=== PATIENT | female | born 1940 | race Caucasian/White ===

== ENCOUNTER 2017-03-20 08:56 | Emergency (ER) | payer MEDICARE, BC ==
--- NOTE | 2017-03-20 10:04 | ER Document Report ---
ED Medical Screen (RME) - General Chief Complaint: Abdominal Pain Stated Complaint: RIGHT LOWER ABDOMINAL PAIN Time Seen by Provider: 03/20/17 09:59 Mode of Arrival: Wheelchair Information source: Patient TRAVEL OUTSIDE OF THE [place] IN LAST 30 DAYS: No - HPI Patient complains to provider of: abdominal pain Onset: Yesterday - pt. with onset of R-sided abdominal pain for the past 1-2 days with difficulty taking a deep breath - Related Data Allergies/Adverse Reactions: codeine [Codeine] Allergy (Verified 03/20/17 09:03) Vomiting Sulfa (Sulfonamide Antibiotics) Allergy (Verified 03/20/17 09:03) rash Past Medical History - Past Medical History Cardiac Medical History: Reports: Hx Coronary Artery Disease, Hx Hypertension, Hx Heart Murmur Denies: Hx Heart Attack Pulmonary Medical History: Reports: Hx Bronchitis, Hx Pneumonia Denies: Hx Asthma, Hx COPD, Hx Tuberculosis Neurological Medical History: Denies: Hx Cerebrovascular Accident, Hx Seizures Endocrine Medical History: Reports: Hx Hypothyroidism Renal/ Medical History: Reports: Hx Kidney Stones. Denies: Hx Peritoneal Dialysis GI Medical History: Reports: Hx Gastroesophageal Reflux Disease, Hx Hiatal Hernia - constricted esophageal hernia, Hx Liver Failure, Hx Ulcer Musculoskeltal Medical History: Reports Hx Arthritis - osteo Psychiatric Medical History: Denies: Hx Depression Past Surgical History: Reports: Hx Cardiac Catheterization - stent, Hx Cardiac Surgery - pacemaker, Hx Cholecystectomy, Hx Hysterectomy, Hx Pacemaker - Immunizations Hx Diphtheria, Pertussis, Tetanus Vaccination: No Physical Exam - Vital signs Vitals: Temp Pulse Resp BP Pulse Ox 98.1 F 60 16 144/69 H 99 03/20/17 09:02 03/20/17 09:02 03/20/17 09:02 03/20/17 09:02 03/20/17 09:02 Course - Vital Signs Vital signs: Temp Pulse Resp BP Pulse Ox 98.1 F 60 16 144/69 H 99 03/20/17 09:02 03/20/17 09:02 03/20/17 09:02 03/20/17 09:02 03/20/17 09:02
[2017-03-20 11:00] LABS: ABSOLUTE BASOPHILS # (AUTO) 0.1 10^3/uL (0.0-0.2); ABSOLUTE EOSINOPHILS # (AUTO) 0.2 10^3/uL (0.0-0.6); ABSOLUTE LYMPHOCYTES (AUTO) 2.3 10^3/uL (0.5-4.7); ABSOLUTE MONOCYTES (AUTO) 1.3 10^3/uL (0.1-1.4); ABSOLUTE NEUT (AUTO) 4.4 10^3/uL (1.7-8.2); BASOPHILS % (AUTO) 1.2 % (0-2); EOSINOPHILS % (AUTO) 2.9 % (0-6); HEMATOCRIT 42.8 % (36.0-47.0); HGB HCT DIFFERENCE -0.8; LYMPHOCYTES % (AUTO) 27.3 % (13-45); MEAN CORPUSCULAR HEMOGLOBIN 30.5 pg (27.0-33.4); MEAN CORPUSCULAR HGB CONC 32.6 g/dL (32.0-36.0); MEAN CORPUSCULAR VOLUME 94 fl (80-97); MONOCYTES % (AUTO) 15.8 % (3-13); RED BLOOD COUNT 4.57 10^6/uL (3.72-5.28); RED CELL DISTRIBUTION WIDTH 13.8 % (11.5-14.0); SEGMENTED NEUTROPHILS % (AUTO) 52.8 % (42-78); WHITE BLOOD COUNT 8.2 10^3/uL (4.0-10.5)
[2017-03-20 11:09] LABS: APPEARANCE,URINE SLIGHTLY-CLOUDY; BILIRUBIN,URINE NEGATIVE (NEGATIVE); GLUCOSE, URINE NEGATIVE (NEGATIVE); KETONES,URINE NEGATIVE (NEGATIVE); LEUKOCYTE ESTERASE,URINE LARGE (NEGATIVE); NITRITE,URINE NEGATIVE (NEGATIVE); PROTEIN,URINE NEGATIVE (NEGATIVE); URINE SPECIFIC GRAVITY 1.009; UROBILINOGEN,URINE NEGATIVE mg/dL (<2.0)
[2017-03-20 11:19] LABS: ALANINE AMINOTRANSFERASE 51 U/L (9-52); ALBUMIN 4.4 g/dL (3.5-5.0); ALKALINE PHOSPHATASE 115 U/L (38-126); ANION GAP 13 (5-19); ASPARTATE AMINO TRANSFERASE 61 U/L (14-36); BILIRUBIN,DIRECT 0.3 mg/dL (0.0-0.4); BILIRUBIN,TOTAL 0.6 mg/dL (0.2-1.3); BLOOD UREA NITROGEN 10 mg/dL (7-20); CALCIUM 9.7 mg/dL (8.4-10.2); CARBON DIOXIDE 32 mmol/L (22-30); CHLORIDE 98 mmol/L (98-107); CREATININE RESULT 0.85 mg/dL (0.52-1.25); GLUCOSE 163 mg/dL (75-110); LIPASE 161.8 U/L (23-300); POTASSIUM 4.4 mmol/L (3.6-5.0); SODIUM 142.8 mmol/L (137-145); TOTAL PROTEIN 9.3 g/dL (6.3-8.2)
--- NOTE | 2017-03-20 13:07 | RADIOLOGY REPORT (SQ) ---
EXAM DESCRIPTION: CTA CHEST COMPLETED DATE/TIME: 03/20/2017 12:49 pm REASON FOR STUDY: elevated d dimer chest pain COMPARISON: CT chest 09/20/2016, 07/02/2016, 01/05/2016, 12/22/2015 TECHNIQUE: CT scan of the chest performed using helical scanning technique with dynamic intravenous contrast injection. Images reviewed with lung, soft tissue and bone windows. Reconstructed coronal and sagittal MPR images reviewed. Additional 3 dimensional post-processing performed to develop Maximal Intensity Projection images (ID P). All images stored on PACS. All CT scanners at this facility use dose modulation, iterative reconstruction, and/or weight based d osing when appropriate to reduce radiation dose to as low as reasonably achievable (ALARA). [facility]: Dose Right [facility]: CareDose [facility]: Dose Right [facility]: Teradose 4D [facility]: [employer] CONTRAST TYPE AND DOSE: 75 mL Isovue 370- low osmolar. RENAL FUNCTION: Creatinine 0.85 RADIATION DOSE: 33.08 mGy. LIMITATIONS: None. FINDINGS: LUNGS AND PLEURA: No masses, infiltrates, pneumothorax. No pleural effusions, calcificati ons. AORTA AND GREAT VESSELS: No aneurysm or dissection. HEART: No pericardial effusion. PULMONARY ARTERIES: No emboli visualized in the main pulmonary arteries or the segmental branches. HILAR AND MEDIASTINAL STRUCTURES: No identified masses or abnormal nodes. HARDWARE: None in the chest. UPPER ABDOMEN: Post cholecystectomy. Benign prominence of the common bile duct, 14 mm diameter. THYROID AND OTHER SOFT TISSUES: No masses. No adenopathy. BONES: No acute or significant finding. 3D MIPS: Confirm above findings. OTHER: No other significant finding. IMPRESSION: No CT angio evidence of acute pulmonary emboli or thoracic aortic dissection. No focal infiltrates. TECHNICAL DOCUMENTATION: JOB ID: [id number] Quality ID # [id number]: Final reports with documentation of one or more dose reduction techniques (e.g., Au tomated exposure control, adjustment of the mA and/or kV according to patient size, use of iterative reconstruction technique) 2010 [employer]- All Rights Reserved
--- NOTE | 2017-03-20 13:15 | RADIOLOGY REPORT (SQ) ---
EXAM DESCRIPTION: CT ABD/PELVIS WITH IV ONLY COMPLETED DATE/TIME: 03/20/2017 12:49 pm REASON FOR STUDY: R Abd pain COMPARISON: CT abdomen pelvis 12/14/2013, 08/24/2012, 10/14/2011 TECHNIQUE: CT scan of the abdomen and pelvis performed using helical scanning technique with dynamic intravenous contrast injection. No oral contrast. Images reviewed with lung, soft tissue, and bone windows. Reconstructed coronal and sagittal MPR images reviewed. Delayed images for evaluation of the urinary system also acquired. All images stored on PACS. All CT scanners at this facility use dose modulation, iterative reconstruction, and/or weight based d osing when appropriate to reduce radiation dose to as low as reasonably achievable (ALARA). [facility]: Dose Right [facility]: CareDose [facility]: Dose Right [facility]: Teradose 4D [facility]: [employer] CONTRAST TYPE AND DOSE: 75mL Isovue 370- low osmolar. RENAL FUNCTION: Creatinine 0.85 RADIATION DOSE: 28.09mGy. LIMITATIONS: None. FINDINGS: LOWER CHEST: No significant findings. No nodules or infiltrates. LIVER: Normal size. No masses or dilated ducts. SPLEEN: Normal size. No focal lesions. PANCREAS: No masses. No significant calcifications. No adjacent inflammation or peripancreatic fluid collections. Pancreatic duct not dilated. GALLBLADDER: Surgically absent. Benign prominence of the common bile duct, 14 mm in diameter. This is similar compared to previous studies. ADRENAL GLANDS: No significant masses or asymmetry. RIGHT KIDNEY AND URETER: No solid masses. No significant calcifications. No hydronephrosis or hyd roureter. LEFT KIDNEY AND URETER: No solid masses. No significant calcifications. No hydronephrosis or hydr oureter. AORTA AND VESSELS: No abdominal aortic aneurysm. No abdominal aortic dissection. There is heavy ath erosclerotic calcification with greater than 75 % stenosis of the bilateral proximal renal arteries a nd superior mesenteric artery. SMA stenosis is best shown on coronal images 32-35. This is similar compared to 01/11/2014 RETROPERITONEUM: No retroperitoneal adenopathy, hemorrhage or masses. BOWEL AND PERITONEAL CAVITY: No masses or inflammatory changes. No free fluid or peritoneal masses. Few colonic diverticuli without CT signs of acute diverticulitis. APPENDIX: Normal. PELVIS: No mass or free fluid. Normal bladder. Post hysterectomy. ABDOMINAL WALL: There is a small fat containing ventral hernia at the ORIF incision in the right uppe r quadrant on axial image 181, similar compared to 01/11/2014. BONES: No significant or acute findings. OTHER: No other significant finding. IMPRESSION: No free intraperitoneal air or fluid or CT signs of bowel obstruction, appendicitis, or diverticulitis. Post cholecystectomy and hysterectomy. 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 TECHNICAL DOCUMENTATION: JOB ID: [id number] Quality ID # [id number]: Final reports with documentation of one or more dose reduction techniques (e.g., Au tomated exposure control, adjustment of the mA and/or kV according to patient size, use of iterative reconstruction technique) 2010 [employer]- All Rights Reserved
--- NOTE | 2017-03-20 13:26 | EKG REPORT ---
SEVERITY:- ABNORMAL ECG - ATRIAL-VENTRICULAR DUAL-PACED RHYTHM : Confirmed by: Theo Booth 20-Mar-2017 13:26:27
[2017-03-20] MEDS ORDERED: NITROFURANTOIN MONOHYD/M-CRYST 100 MG CAPSULE PO ONE (13:53)
[2017-03-20] MEDS ORDERED: LIDOCAINE 5% (700 MG) TRANSDERMAL ADH..PATCH TP ONE (13:53)
--- NOTE | 2017-03-20 14:02 | ER Document Report ---
ED General - General Chief Complaint: Abdominal Pain Stated Complaint: RIGHT LOWER ABDOMINAL PAIN Time Seen by Provider: 03/20/17 09:59 Mode of Arrival: Wheelchair TRAVEL OUTSIDE OF THE [place] IN LAST 30 DAYS: No - Related Data Allergies/Adverse Reactions: codeine [Codeine] Allergy (Verified 03/20/17 09:03) Vomiting Sulfa (Sulfonamide Antibiotics) Allergy (Verified 03/20/17 09:03) rash Past Medical History - General Information source: Patient - Social History Smoking Status: Never Smoker Chew tobacco use (# tins/day): No Frequency of alcohol use: None Drug Abuse: None Family History: None Patient has suicidal ideation: No Patient has homicidal ideation: No - Past Medical History Cardiac Medical History: Reports: Hx Coronary Artery Disease, Hx Hypertension, Hx Heart Murmur Denies: Hx Heart Attack Pulmonary Medical History: Reports: Hx Bronchitis, Hx Pneumonia Denies: Hx Asthma, Hx COPD, Hx Tuberculosis Neurological Medical History: Denies: Hx Cerebrovascular Accident, Hx Seizures Endocrine Medical History: Reports: Hx Hypothyroidism Renal/ Medical History: Reports: Hx Kidney Stones. Denies: Hx Peritoneal Dialysis GI Medical History: Reports: Hx Gastroesophageal Reflux Disease, Hx Hiatal Hernia - constricted esophageal hernia, Hx Liver Failure, Hx Ulcer Musculoskeltal Medical History: Reports Hx Arthritis - osteo Psychiatric Medical History: Denies: Hx Depression Past Surgical History: Reports: Hx Cardiac Catheterization - stent, Hx Cardiac Surgery - pacemaker, Hx Cholecystectomy, Hx Hysterectomy, Hx Pacemaker - Immunizations Hx Diphtheria, Pertussis, Tetanus Vaccination: No Hx Pneumococcal Vaccination: 10/17/06 Physical Exam - Vital signs Vitals: Temp Pulse Resp BP Pulse Ox 98.1 F 60 16 144/69 H 99 03/20/17 09:02 03/20/17 09:02 03/20/17 09:02 03/20/17 09:02 03/20/17 09:02 Course - Vital Signs Vital signs: Temp Pulse Resp BP Pulse Ox 98.1 F 60 16 144/69 H 99 03/20/17 09:02 03/20/17 09:02 03/20/17 09:02 03/20/17 09:02 03/20/17 09:02 - Laboratory Result Diagrams: 03/20/17 10:35 03/20/17 10:35 Laboratory results interpreted by me: 03/20/17 03/20/1703/20/17 09:40 10:35 10:35 Monocytes % 15.8 H D-Dimer Carbon Dioxide 32 H Glucose 163 H AST 61 H Total Protein 9.3 H Ur Leukocyte Esterase LARGE H 03/20/17 10:35 Monocytes % D-Dimer 0.52 H Carbon Dioxide Glucose AST Total Protein Ur Leukocyte Esterase Discharge - Discharge Clinical Impression: Right flank pain UTI (urinary tract infection) Qualifiers: Urinary tract infection type: site unspecified Hematuria presence: without hematuria Qualified Code(s): N39.0 - Urinary tract infection, site not specified Condition: Good Disposition: HOME, SELF-CARE Instructions: Nitrofurantoin ([facility]), Urinary Tract Infection ([facility]), Flank Pain ( [facility]) Additional Instructions: Please follow-up with your primary care provider for further evaluation. At this time there is no critical pathology for your right-sided abdominal pain. Her urinalysis does show signs of infection with bacteria. We will send this for culture we will start you on Macrobid. If you do receive good pain relief with a Lidoderm patch I would recommend discussing this with your pharmacist about [id number] alternatives such as salon pause or Aspercreme. Please follow-up with your primary care physician Prescriptions: Nitrofurantoin Monohyd/M-Cryst [Macrobid 100 mg Capsule] 100 mg PO BID #20 capsule Referrals: JANI ARREDONDO MD [Primary Care Provider] - Follow up in 3-5 days
[2017-03-20 15:00] VITALS: BP 145/60
== END 2017-03-20 15:04 | disposition home or self-care (01) ==
LOC: ER 08:56
DX: R10.31 Right lower quadrant pain (principal); N39.0 Urinary tract infection, site not specified; I25.10 Atherosclerotic heart disease of native coronary artery without angina pectoris; I10 Essential (primary) hypertension; E03.9 Hypothyroidism, unspecified; K21.9 Gastro-esophageal reflux disease without esophagitis; Z88.6 Allergy status to analgesic agent; Z88.2 Allergy status to sulfonamides; Z87.442 Personal history of urinary calculi; Z95.0 Presence of cardiac pacemaker; Z90.49 Acquired absence of other specified parts of digestive tract; Z90.710 Acquired absence of both cervix and uterus
CPT/HCPCS: 93005; 99284; 36415; 87086; 83690; 85025; 80053; 81001; 85379; 71275; 74177; 93010; A9270; J8499

== ENCOUNTER → 2017-06-10 | Outpatient (CLI) | payer MEDICARE, BC ==
--- NOTE | 2017-06-10 15:04 | RADIOLOGY REPORT (SQ) ---
EXAM DESCRIPTION: CT CHEST WITHOUT COMPLETED DATE/TIME: 06/10/2017 2:04 pm REASON FOR STUDY: BRONCHIECTASIS (J47.9) J47.9 BRONCHIECTASIS, UNCOMPLICATED COMPARISON: 03/20/2017 TECHNIQUE: CT scan performed of the chest without intravenous contrast. Images reviewed with lung, soft tissue and bone windows. Reconstructed coronal and sagittal MPR images reviewed. All images st ored on PACS. All CT scanners at this facility use dose modulation, iterative reconstruction, and/or weight based d osing when appropriate to reduce radiation dose to as low as reasonably achievable (ALARA). [facility]: Dose Right [facility]: CareDose [facility]: Dose Right [facility]: Teradose 4D [facility]: [employer] RADIATION DOSE: Up-to-date CT equipment and radiation dose reduction techniques were employed. CTDIv ol: 6.0 mGy. DLP: 235 mGy-cm. mGy. LIMITATIONS: No technical limitations. FINDINGS: LUNGS AND PLEURA: Mild bronchiectasis left lower lobe. Scarring in the lingula. No effus ions. HILAR AND MEDIASTINAL STRUCTURES: No identified masses or abnormal nodes. No obvious aneurysm. HEART AND VASCULAR STRUCTURES: Cardiomegaly. Pacemaker. No aneurysm. No pericardial effusion. UPPER ABDOMEN: No significant findings. Limited exam. THYROID AND OTHER SOFT TISSUES: No masses. No adenopathy. BONES: No significant finding. HARDWARE: None in the chest. OTHER: No other significant findings. IMPRESSION: Mild bronchiectasis. TECHNICAL DOCUMENTATION: JOB ID: [id number] Quality ID # [id number]: Final reports with documentation of one or more dose reduction techniques (e.g., Au tomated exposure control, adjustment of the mA and/or kV according to patient size, use of iterative reconstruction technique) 2010 [employer]- All Rights Reserved
== END ==
LOC: RAD 13:38
PROVIDERS: ATTEND Internal Medicine Pulmonary Disease
DX: J47.9 Bronchiectasis, uncomplicated (principal)
CPT/HCPCS: 71250

== ENCOUNTER 2017-07-20 14:10 | Emergency (ER) | payer MEDICARE, BC ==
--- NOTE | 2017-07-20 14:50 | ER Document Report ---
ED Medical Screen (RME) - General Chief Complaint: Abdominal Pain Stated Complaint: VOMITING Time Seen by Provider: 07/20/17 14:18 Mode of Arrival: Wheelchair Information source: Patient TRAVEL OUTSIDE OF THE [place] IN LAST 30 DAYS: No - HPI Patient complains to provider of: Diarrhea, abdominal pain, nausea Notes: 07/20/17 14:50 Patient is a 77-year-old female presenting to the emergency room today complaining of 2 week history of diarrhea with nausea and crampy abdominal pain - Related Data Allergies/Adverse Reactions: codeine [Codeine] Allergy (Verified 07/20/17 14:14) Vomiting Sulfa (Sulfonamide Antibiotics) Allergy (Verified 07/20/17 14:14) rash Past Medical History - Past Medical History Cardiac Medical History: Reports: Hx Coronary Artery Disease, Hx Hypertension, Hx Heart Murmur Denies: Hx Heart Attack Pulmonary Medical History: Reports: Hx Bronchitis, Hx Pneumonia Denies: Hx Asthma, Hx COPD, Hx Tuberculosis Neurological Medical History: Denies: Hx Cerebrovascular Accident, Hx Seizures Endocrine Medical History: Reports: Hx Hypothyroidism Renal/ Medical History: Reports: Hx Kidney Stones. Denies: Hx Peritoneal Dialysis GI Medical History: Reports: Hx Gastroesophageal Reflux Disease, Hx Hiatal Hernia - constricted esophageal hernia, Hx Liver Failure, Hx Ulcer Musculoskeltal Medical History: Reports Hx Arthritis - osteo Psychiatric Medical History: Denies: Hx Depression Past Surgical History: Reports: Hx Cardiac Catheterization - stent, Hx Cardiac Surgery - pacemaker, Hx Cholecystectomy, Hx Hysterectomy, Hx Pacemaker - Immunizations Hx Diphtheria, Pertussis, Tetanus Vaccination: No Physical Exam - Vital signs Vitals: Temp Pulse Resp BP Pulse Ox 98.0 F 60 14 147/63 H 96 07/20/17 14:14 07/20/17 14:14 07/20/17 14:14 07/20/17 14:14 07/20/17 14:14 Course - Vital Signs Vital signs: Temp Pulse Resp BP Pulse Ox 98.0 F 60 14 147/63 H 96 07/20/17 14:14 07/20/17 14:14 07/20/17 14:14 07/20/17 14:14 07/20/17 14:14
[2017-07-20 15:40] LABS: ABSOLUTE BASOPHILS # (AUTO) 0.1 10^3/uL (0.0-0.2); ABSOLUTE EOSINOPHILS # (AUTO) 0.1 10^3/uL (0.0-0.6); ABSOLUTE LYMPHOCYTES (AUTO) 1.6 10^3/uL (0.5-4.7); ABSOLUTE MONOCYTES (AUTO) 0.6 10^3/uL (0.1-1.4); BASOPHILS % (AUTO) 1.3 % (0-2); EOSINOPHILS % (AUTO) 1.3 % (0-6); HEMATOCRIT 43.1 % (36.0-47.0); HEMOGLOBIN 14.6 g/dL (12.0-15.5); HGB HCT DIFFERENCE 0.7; LYMPHOCYTES % (AUTO) 25.3 % (13-45); MEAN CORPUSCULAR HEMOGLOBIN 31.2 pg (27.0-33.4); MEAN CORPUSCULAR HGB CONC 33.9 g/dL (32.0-36.0); MEAN CORPUSCULAR VOLUME 92 fl (80-97); MONOCYTES % (AUTO) 9.7 % (3-13); RED BLOOD COUNT 4.69 10^6/uL (3.72-5.28); RED CELL DISTRIBUTION WIDTH 13.9 % (11.5-14.0); SEGMENTED NEUTROPHILS % (AUTO) 62.4 % (42-78); WHITE BLOOD COUNT 6.4 10^3/uL (4.0-10.5)
[2017-07-20 15:59] LABS: ALANINE AMINOTRANSFERASE 45 U/L (9-52); ALBUMIN 4.5 g/dL (3.5-5.0); ALKALINE PHOSPHATASE 92 U/L (38-126); ANION GAP 13 (5-19); ASPARTATE AMINO TRANSFERASE 40 U/L (14-36); BILIRUBIN,DIRECT 0.4 mg/dL (0.0-0.4); BILIRUBIN,TOTAL 0.6 mg/dL (0.2-1.3); BLOOD UREA NITROGEN 11 mg/dL (7-20); CALCIUM 10.3 mg/dL (8.4-10.2); CARBON DIOXIDE 27 mmol/L (22-30); CHLORIDE 103 mmol/L (98-107); CREATININE RESULT 0.72 mg/dL (0.52-1.25); GLUCOSE 173 mg/dL (75-110); LIPASE 111.8 U/L (23-300); POTASSIUM 4.3 mmol/L (3.6-5.0); SODIUM 142.7 mmol/L (137-145); TOTAL PROTEIN 8.7 g/dL (6.3-8.2)
[2017-07-20] MEDS ORDERED: ONDANSETRON HCL INJ/PF 4 MG/2 ML SDV IV ONE (16:40)
[2017-07-20] MEDS ORDERED: NORMAL SALINE 1000 ML 1,000 ML IV PRN (16:40)
--- NOTE | 2017-07-20 16:45 | ER Document Report ---
ED General - General Chief Complaint: Abdominal Pain Stated Complaint: VOMITING Time Seen by Provider: 07/20/17 14:18 Mode of Arrival: Wheelchair TRAVEL OUTSIDE OF THE [place] IN LAST 30 DAYS: No - HPI Notes: Patient is a 77-year-old female who presents the ED complaining of abdominal pain, diarrhea, and nausea. Patient states that she has been having symptoms on and off for the last 2 weeks, but worsened over the last day. Stools have been semisolid at times and are brown. Patient states that she has a history of diverticulosis as well as a mild bowel obstruction that did not need surgery. Patient states that she has not been eating or drinking as much over the last couple days because of her symptoms. The pain does not radiate and is described as sharp and occasionally cramping. Patient states that she does have some burning with urination and increased frequency/urgency. Patient has a history of a cholecystectomy as well as an appendectomy. Denies any history of diabetes or cancer. Denies any melena or hematochezia. Denies any headache , fever, URI, sore throat, chest pain, palpitations, syncope, cough, shortness of breath, wheeze, dyspnea, vomiting, hematuria, back pain, loss of control of bowel or bladder, numbness/tingling, saddle anesthesia, muscle paralysis/ weakness, or rash. - Related Data Allergies/Adverse Reactions: codeine [Codeine] Allergy (Verified 07/20/17 14:14) Vomiting Sulfa (Sulfonamide Antibiotics) Allergy (Verified 07/20/17 14:14) rash Past Medical History - General Information source: Patient - Social History Smoking Status: Never Smoker Chew tobacco use (# tins/day): No Frequency of alcohol use: None Drug Abuse: None Family History: None - Past Medical History Cardiac Medical History: Reports: Hx Coronary Artery Disease, Hx Hypertension, Hx Heart Murmur Denies: Hx Heart Attack Pulmonary Medical History: Reports: Hx Bronchitis, Hx Pneumonia Denies: Hx Asthma, Hx COPD, Hx Tuberculosis Neurological Medical History: Denies: Hx Cerebrovascular Accident, Hx Seizures Endocrine Medical History: Reports: Hx Hypothyroidism Renal/ Medical History: Reports: Hx Kidney Stones. Denies: Hx Peritoneal Dialysis GI Medical History: Reports: Hx Gastroesophageal Reflux Disease, Hx Hiatal Hernia - constricted esophageal hernia, Hx Liver Failure, Hx Ulcer Musculoskeltal Medical History: Reports Hx Arthritis - osteo Psychiatric Medical History: Denies: Hx Depression Past Surgical History: Reports: Hx Cardiac Catheterization - stent, Hx Cardiac Surgery - pacemaker, Hx Cholecystectomy, Hx Hysterectomy, Hx Pacemaker - Immunizations Hx Diphtheria, Pertussis, Tetanus Vaccination: No Hx Pneumococcal Vaccination: 10/17/06 Review of Systems - Review of Systems Notes: REVIEW OF SYSTEMS: CONSTITUTIONAL : Denies fever, chills, or sweats. Denies recent illness. EENT: Denies eye, ear, throat, or mouth pain or symptoms. Denies nasal or sinus congestion or discharge. Denies throat, tongue, or mouth swelling or difficulty swallowing. CARDIOVASCULAR: Denies chest pain. Denies palpitations or racing or irregular heart beat. Denies ankle edema. RESPIRATORY: Denies cough, cold, or chest congestion. Denies shortness of breath, difficulty breathing, or wheezing. GASTROINTESTINAL: see hpi GENITOURINARY: see hpi MUSCULOSKELETAL: Denies back or neck pain or stiffness. Denies joint pain or swelling. SKIN: Denies rash, lesions or sores. NEUROLOGICAL: Denies confusion or altered mental status. Denies passing out or loss of consciousness. Denies dizziness or lightheadedness. Denies headache. Denies weakness or paralysis or loss of use of either side. Denies problems with gait or speech. Denies sensory loss, numbness, or tingling. ALL OTHER SYSTEMS REVIEWED AND NEGATIVE. Dictation was performed using [employer] voice recognition software Physical Exam - Vital signs Vitals: Temp Pulse Resp BP Pulse Ox 98.0 F 60 14 147/63 H 96 07/20/17 14:14 07/20/17 14:14 07/20/17 14:14 07/20/17 14:14 07/20/17 14:14 Notes: PHYSICAL EXAMINATION: GENERAL: Well-appearing, well-nourished and in no acute distress. A&Ox4 EYES: Pupils equal round and reactive to light, extraocular movements intact, sclera anicteric, conjunctiva are normal. ENT: Nares patent and without discharge. oropharynx clear without exudates. No tonsilar hypertrophy or erythema. Moist mucous membranes. No sinus tenderness. NECK: Normal range of motion, supple without lymphadenopathy LUNGS: Breath sounds clear to auscultation bilaterally and equal. No wheezes rales or rhonchi. HEART: Regular rate and rhythm without murmurs, rubs, gallops. ABDOMEN: Soft, nondistended abdomen. No guarding, no rebound. No masses appreciated. Normal bowel sounds present. No CVA tenderness bilaterally. + tenderness to the L>R lower quadrant. Musculoskeletal: LE's b/l: FROM to passive/active. Strength 5+/5. Extremities: No cyanosis, clubbing, or edema b/l. Peripheral pulses 2+. Capillary refill less than 3 seconds. NEUROLOGICAL: Normal speech. Normal sensory, motor exams PSYCH: Normal mood, normal affect. SKIN: Warm, Dry, normal turgor, no rashes or lesions noted. Course - Re-evaluation Re-evalutation: 07/20/17 18:52 Patient is an afebrile, well-hydrated, 77-year-old female who presents the ED with C. difficile and possible UTI. Vitals are stable. PE is otherwise unremarkable. Urinalysis was not run by the lab even though it was ordered and collected by [facility]. Lab states that they are now currently running the urine for us. C. difficile test was positive. CBC, CMP, lipase, guiac were unremarkable. CT scan of the abdomen did not show any acute pathology. Patient's C. difficile infection appears to be graded as mild at this time based on workup today. Low suspicion/risk for acute appendicitis, bowel obstruction, acute cholecystitis, acute cholangitis, perforated diverticulitis, incarcerated hernia, pancreatitis, perforated ulcer, peritonitis, sepsis, pelvic inflammatory disease, ectopic , tubo-ovarian abscess, ovarian torsion, or other systemic emergent condition at this time. Patient is aware that her condition can change from initial presentation and she needs to monitor symptoms closely and seek medical attention if any acute changes. I will send her home with a prescription for Flagyl to take 3 times a day for 2 weeks. Medication for UTI is pending urinalysis. Urine culture is pending. Conservative measures otherwise for symptoms. Recheck with your PCM in 2-3 days. Consider consult with a nail puller. Return to the ED with any worsening/concerning symptoms otherwise as reviewed in discharge. Patient is in agreement. 07/20/17 19:12 UA unremarkable. UC pending. No new concerns or complaints. Pt to be discharged. - Vital Signs Vital signs: Temp Pulse Resp BP Pulse Ox 98.0 F 75 16 135/67 H 96 07/20/17 18:13 07/20/17 18:13 07/20/17 18:13 07/20/17 18:13 07/20/17 18:13 - Laboratory Result Diagrams: 07/20/17 15:25 07/20/17 14:49 Laboratory results interpreted by me: 07/20/17 07/20/17 14:49 15:33 Glucose 173 H Calcium 10.3 H AST 40 H Total Protein 8.7 H Urine Glucose (UA) 50 H Urine Blood MODERATE H Ur Leukocyte Esterase SMALL H Discharge - Discharge Clinical Impression: C. difficile diarrhea Condition: Stable Disposition: HOME, SELF-CARE Instructions: Antinausea Medication ([facility]), C. (Clostridium) Difficile Infection ([facility]), Metronidazole ([facility]) Additional Instructions: Maintain adequate fluid and food intake [place] diet ([employer] Bananas, rice, apples, toast, etc Zofran as needed tylenol if needed Monitor for any worsening symptoms Make sure you are staying hydrated Recheck with your PCM in 2-3 days Consider consult with Gastroenterology for ongoing/worsening symptoms Return to the ED with any worsening symptoms and/or development of fever, headache, chest pain, palpitations, syncope, shortness of breath, trouble breathing, abdominal pain, n/v/d, blood in stool/urine, weakness, or other worsening symptoms that are concerning to you. Prescriptions: Metronidazole [Flagyl] 500 mg PO TID #42 tablet Ondansetron [Zofran Odt 4 mg Tablet] 1 - 2 tab PO Q4H PRN #15 tab.rapdis PRN Reason: For Nausea/Vomiting Forms: Elevated Blood Pressure Referrals: CRISTO POE PA-C [Primary Care Provider] - 07/22/17 NALLELY WISEMAN MD [ACTIVE STAFF] - Follow up as needed
--- NOTE | 2017-07-20 18:47 | RADIOLOGY REPORT (SQ) ---
EXAM DESCRIPTION: CT ABD/PELVIS WITH IV ONLY COMPLETED DATE/TIME: 07/20/2017 5:57 pm REASON FOR STUDY: LLQ pain, diarrhea COMPARISON: 03/20/2017 TECHNIQUE: CT scan of the abdomen and pelvis performed using helical scanning technique with dynamic intravenous contrast injection. No oral contrast. Images reviewed with lung, soft tissue, and bone windows. Reconstructed coronal and sagittal MPR images reviewed. Delayed images for evaluation of the urinary system also acquired. All images stored on PACS. All CT scanners at this facility use dose modulation, iterative reconstruction, and/or weight based d osing when appropriate to reduce radiation dose to as low as reasonably achievable (ALARA). [facility]: Dose Right [facility]: CareDose [facility]: Dose Right [facility]: Teradose 4D [facility]: [employer] CONTRAST TYPE AND DOSE: contrast/concentration: Isovue 370.00 mg/ml; Total Contrast Delivered: 76.0 ml; Total Saline Delivered: 42.0 ml RENAL FUNCTION: Creatinine 0.2 BUN 11 RADIATION DOSE: Up-to-date CT equipment and radiation dose reduction techniques were employed. CTDIv ol: 8.0 - 11.0 mGy. DLP: 964 mGy-cm.. LIMITATIONS: None. FINDINGS: LOWER CHEST: No significant findings. No nodules or infiltrates. LIVER: Normal size. No masses. No dilated intrahepatic ducts. The common bile duct is prominent but probably related to the prior cholecystectomy. SPLEEN: Normal size. No focal lesions. PANCREAS: No masses. No significant calcifications. No adjacent inflammation or peripancreatic fluid collections. Pancreatic duct not dilated. GALLBLADDER: Surgically absent. ADRENAL GLANDS: No significant masses or asymmetry. RIGHT KIDNEY AND URETER: No solid masses. No significant calcifications. No hydronephrosis or hyd roureter. LEFT KIDNEY AND URETER: No solid masses. No significant calcifications. No hydronephrosis or hydr oureter. AORTA AND VESSELS: No aneurysm or dissection. Atherosclerosis with prominent plaques at the origins of the SMA and renal arteries. RETROPERITONEUM: No retroperitoneal adenopathy, hemorrhage or masses. BOWEL AND PERITONEAL CAVITY: Scattered sigmoid diverticula are present with no acute inflammatory kae nges. No masses are seen. APPENDIX: Not identified. PELVIS: Urinary bladder is normal. The uterus is absent. There is no adnexal mass or fluid collecti on. There is no free fluid. ABDOMINAL WALL: There is a 15 mm ventral hernia is seen on image 37 series 5. This contains only fat . BONES: Lumbar degenerative disc changes and spondylosis with mild scoliosis. No osseous lesions are seen. OTHER: No other significant finding. IMPRESSION: 1. The common bile duct is prominent but likely related to the prior cholecystectomy. There is no intrahepatic ductal dilatation. 2. Atherosclerosis as described above. 3. Small ventral hernia containing only fat. 4. Lumbar degenerative disc changes spondylosis and mild scoliosis. 5. Diverticulosis coli. TECHNICAL DOCUMENTATION: JOB ID: [id number] Quality ID # [id number]: Final reports with documentation of one or more dose reduction techniques (e.g., Au tomated exposure control, adjustment of the mA and/or kV according to patient size, use of iterative reconstruction technique) 2010 [employer]- All Rights Reserved
[2017-07-20 19:04] LABS: APPEARANCE,URINE CLEAR; BILIRUBIN,URINE NEGATIVE (NEGATIVE); GLUCOSE, URINE 50 mg/dL (NEGATIVE); KETONES,URINE NEGATIVE (NEGATIVE); LEUKOCYTE ESTERASE,URINE SMALL (NEGATIVE); NITRITE,URINE NEGATIVE (NEGATIVE); PROTEIN,URINE NEGATIVE (NEGATIVE); URINE SPECIFIC GRAVITY 1.005; UROBILINOGEN,URINE NEGATIVE mg/dL (<2.0)
[2017-07-20 19:09] VITALS: BP 135/67
== END 2017-07-20 19:30 | disposition home or self-care (01) ==
LOC: ER 14:10
DX: Z87.19 Personal history of other diseases of the digestive system (principal); R30.0 Dysuria; R35.0 Frequency of micturition; R39.15 Urgency of urination; I10 Essential (primary) hypertension; I25.10 Atherosclerotic heart disease of native coronary artery without angina pectoris; Z90.49 Acquired absence of other specified parts of digestive tract; A04.72 Enterocolitis due to Clostridium difficile, not specified as recurrent; Z88.2 Allergy status to sulfonamides; Z88.5 Allergy status to narcotic agent; Z95.5 Presence of coronary angioplasty implant and graft; Z95.0 Presence of cardiac pacemaker
CPT/HCPCS: 99284; 96361; 96374; 36415; 87045; 87086; 89055; 87205; 83690; 85025; 82272; 80053; 81001; 87493; 83605; 74177; J2405; J7030

== ENCOUNTER 2017-08-10 20:12 | Observation (INO) | payer MEDICARE, BC ==
--- NOTE | 2017-08-10 23:11 | EKG REPORT ---
SEVERITY:- ABNORMAL ECG - ATRIAL-VENTRICULAR DUAL-PACED RHYTHM : Confirmed by: Theo Booth 10-Aug-2017 23:10:39
--- NOTE | 2017-08-10 23:12 | ER Document Report ---
ED Medical Screen (RME) - General Chief Complaint: Arm Pain Stated Complaint: CHEST PAIN, RIGHT ARM PAIN Time Seen by Provider: 08/10/17 23:11 Notes: Patient is a 77-year-old female who presents emergency department complaining of right arm pain sudden onset this evening. She states that it was hurting up in her shoulder along her neck and radiating into her right arm and hand. She also admits to numbness and tingling. She also admits to intermittent left sided chest pain that was fleeting. She otherwise denies any cough, difficulty breathing, shortness of breath, diaphoresis, chills. She states that she took 200 mg Motrin and 4 baby aspirin which helped improve her pain. She also states that she took 3 sublingual nitro and received one from EMS prior to arrival. TRAVEL OUTSIDE OF THE [place] IN LAST 30 DAYS: No - Related Data Allergies/Adverse Reactions: codeine [Codeine] Allergy (Verified 07/20/17 14:14) Vomiting Sulfa (Sulfonamide Antibiotics) Allergy (Verified 07/20/17 14:14) rash Past Medical History - Past Medical History Cardiac Medical History: Reports: Hx Coronary Artery Disease, Hx Hypertension, Hx Heart Murmur Denies: Hx Heart Attack Pulmonary Medical History: Reports: Hx Bronchitis, Hx Pneumonia Denies: Hx Asthma, Hx COPD, Hx Tuberculosis Neurological Medical History: Denies: Hx Cerebrovascular Accident, Hx Seizures Endocrine Medical History: Reports: Hx Hypothyroidism Renal/ Medical History: Reports: Hx Kidney Stones. Denies: Hx Peritoneal Dialysis GI Medical History: Reports: Hx Gastroesophageal Reflux Disease, Hx Hiatal Hernia - constricted esophageal hernia, Hx Liver Failure, Hx Ulcer Musculoskeltal Medical History: Reports Hx Arthritis - osteo Psychiatric Medical History: Denies: Hx Depression Past Surgical History: Reports: Hx Cardiac Catheterization - stent, Hx Cardiac Surgery - pacemaker, Hx Cholecystectomy, Hx Hysterectomy, Hx Pacemaker - Immunizations Hx Diphtheria, Pertussis, Tetanus Vaccination: No History of Influenza Vaccine for 07/2017 - 12/2017 Season: No Physical Exam - Vital signs Vitals: Temp Pulse Resp BP Pulse Ox 98.2 F 61 18 148/68 H 94 08/10/17 21:20 08/10/17 21:20 08/10/17 21:20 08/10/17 21:20 08/10/17 21:20 - Respiratory Respiratory status: No respiratory distress Chest status: Nontender Breath sounds: Normal Chest palpation: Normal - Cardiovascular Rhythm: Regular Heart sounds: Normal auscultation, S1 appreciated, S2 appreciated Gallop: None auscultated Pulses: Normal: Radial - Extremities Shoulder: Tender - along trapezius and cervical musculature on the right side. No: Deformity, Dislocation, Limited ROM Arm: Normal, Nontender Elbow: Normal, Nontender Forearm: Normal, Nontender Wrist: Normal, Nontender Hand: Normal, Other - stone operator strength 5/5 bilaterally Course - Vital Signs Vital signs: Temp Pulse Resp BP Pulse Ox 98.2 F 61 18 148/68 H 94 08/10/17 21:20 08/10/17 21:20 08/10/17 21:20 08/10/17 21:20 08/10/17 21:20 - Laboratory Result Diagrams: 08/10/17 22:50 08/10/17 22:50 Laboratory results interpreted by me: 08/10/17 08/10/17 22:50 22:50 Monocytes % 13.7 H Sodium 147.8 H AST 45 H
[2017-08-10 23:27] LABS: ABSOLUTE BASOPHILS # (AUTO) 0.1 10^3/uL (0.0-0.2); ABSOLUTE EOSINOPHILS # (AUTO) 0.2 10^3/uL (0.0-0.6); ABSOLUTE LYMPHOCYTES (AUTO) 2.3 10^3/uL (0.5-4.7); ABSOLUTE MONOCYTES (AUTO) 0.8 10^3/uL (0.1-1.4); ABSOLUTE NEUT (AUTO) 2.5 10^3/uL (1.7-8.2); BASOPHILS % (AUTO) 1.1 % (0-2); EOSINOPHILS % (AUTO) 3.2 % (0-6); HEMATOCRIT 39.4 % (36.0-47.0); HEMOGLOBIN 13.6 g/dL (12.0-15.5); HGB HCT DIFFERENCE 1.4; MEAN CORPUSCULAR HGB CONC 34.5 g/dL (32.0-36.0); MEAN CORPUSCULAR VOLUME 93 fl (80-97); MONOCYTES % (AUTO) 13.7 % (3-13); RED BLOOD COUNT 4.25 10^6/uL (3.72-5.28); RED CELL DISTRIBUTION WIDTH 13.9 % (11.5-14.0); WHITE BLOOD COUNT 5.8 10^3/uL (4.0-10.5)
[2017-08-10 23:36] LABS: ALANINE AMINOTRANSFERASE 51 U/L (9-52); ALBUMIN 4.2 g/dL (3.5-5.0); ALKALINE PHOSPHATASE 108 U/L (38-126); ANION GAP 14 (5-19); ASPARTATE AMINO TRANSFERASE 45 U/L (14-36); BILIRUBIN,DIRECT 0.4 mg/dL (0.0-0.4); BILIRUBIN,TOTAL 0.4 mg/dL (0.2-1.3); BLOOD UREA NITROGEN 9 mg/dL (7-20); CALCIUM 9.9 mg/dL (8.4-10.2); CARBON DIOXIDE 27 mmol/L (22-30); CHLORIDE 107 mmol/L (98-107); CREATINE KINASE 35 U/L (30-135); CREATININE RESULT 0.78 mg/dL (0.52-1.25); GLUCOSE 93 mg/dL (75-110); POTASSIUM 4.2 mmol/L (3.6-5.0); SODIUM 147.8 mmol/L (137-145)
[2017-08-10 23:49] LABS: CREATINE KINASE MB 0.38 ng/mL (<4.55)
[2017-08-10 23:50] LABS: TROPONIN I < 0.012 ng/mL
--- NOTE | 2017-08-11 00:16 | RADIOLOGY REPORT (SQ) ---
EXAM DESCRIPTION: CHEST SINGLE VIEW COMPLETED DATE/TIME: 08/10/2017 11:28 pm REASON FOR STUDY: chest pain COMPARISON: 07/02/2016. EXAM PARAMETERS: NUMBER OF VIEWS: One view. TECHNIQUE: Single frontal radiographic view of the chest acquired. RADIATION DOSE: NA LIMITATIONS: None. FINDINGS: LUNGS AND PLEURA: Mild interstitial markings, stable. MEDIASTINUM AND HILAR STRUCTURES: No masses. Contour normal. HEART AND VASCULAR STRUCTURES: Heart normal in size. Normal vasculature. BONES: No acute findings. HARDWARE: Left cardiac stimulation device and leads. Right upper abdominal clips. OTHER: No other significant finding. IMPRESSION: No acute cardiopulmonary findings. TECHNICAL DOCUMENTATION: JOB ID: [id number]
--- NOTE | 2017-08-11 01:34 | ER Document Report ---
ED General - General Chief Complaint: Arm Pain Stated Complaint: CHEST PAIN, RIGHT ARM PAIN Time Seen by Provider: 08/10/17 23:11 Mode of Arrival: Ambulatory Information source: Patient Notes: 77-year-old female presents with complaints of chest pain associated with right neck pain that radiated down her arm. Patient notes she took nitroglycerin at home which resolved her chest pain. Patient does have a history of one previous cardiac stent, as well as a pacemaker defibrillator TRAVEL OUTSIDE OF THE [place] IN LAST 30 DAYS: No - HPI Onset: Just prior to arrival Onset/Duration: Sudden Quality of pain: Achy Severity: Mild Pain Level: 1 Associated symptoms: Chest pain Exacerbated by: Denies Relieved by: Denies Similar symptoms previously: No Recently seen / treated by doctor: No - Related Data Allergies/Adverse Reactions: codeine [Codeine] Allergy (Verified 07/20/17 14:14) Vomiting Sulfa (Sulfonamide Antibiotics) Allergy (Verified 07/20/17 14:14) rash Past Medical History - Social History Smoking Status: Never Smoker Cigarette use (# per day): No Chew tobacco use (# tins/day): No Smoking Education Provided: No Family History: None Patient has suicidal ideation: No Patient has homicidal ideation: No - Past Medical History Cardiac Medical History: Reports: Hx Coronary Artery Disease, Hx Hypertension, Hx Heart Murmur Denies: Hx Heart Attack Pulmonary Medical History: Reports: Hx Bronchitis, Hx Pneumonia Denies: Hx Asthma, Hx COPD, Hx Tuberculosis Neurological Medical History: Denies: Hx Cerebrovascular Accident, Hx Seizures Endocrine Medical History: Reports: Hx Hypothyroidism Renal/ Medical History: Reports: Hx Kidney Stones. Denies: Hx Peritoneal Dialysis GI Medical History: Reports: Hx Gastroesophageal Reflux Disease, Hx Hiatal Hernia - constricted esophageal hernia, Hx Liver Failure, Hx Ulcer Musculoskeltal Medical History: Reports Hx Arthritis - osteo Psychiatric Medical History: Denies: Hx Depression Past Surgical History: Reports: Hx Cardiac Catheterization - stent, Hx Cardiac Surgery - pacemaker, Hx Cholecystectomy, Hx Hysterectomy, Hx Pacemaker - Immunizations Hx Diphtheria, Pertussis, Tetanus Vaccination: No Hx Pneumococcal Vaccination: 10/17/06 Review of Systems - Review of Systems Notes: REVIEW OF SYSTEMS: CONSTITUTIONAL : Denies fever, chills, or sweats. Denies recent illness. EENT: Denies eye, ear, throat, or mouth pain or symptoms. Denies nasal or sinus congestion or discharge. Denies throat, tongue, or mouth swelling or difficulty swallowing. CARDIOVASCULAR: Admits to chest pain RESPIRATORY: Denies cough, cold, or chest congestion. Denies shortness of breath, difficulty breathing, or wheezing. GASTROINTESTINAL: Denies abdominal pain or distention. Denies nausea, vomiting , or diarrhea. Denies blood in vomitus, stools, or per rectum. Denies black, tarry stools. Denies constipation. GENITOURINARY: Denies difficulty urinating, painful urination, burning, frequency, blood in urine, or discharge. FEMALE GENITOURINARY: Denies vaginal bleeding, heavy or abnormal periods, irregular periods. Denies vaginal discharge or odor. MUSCULOSKELETAL: Admits to right arm pain SKIN: Denies rash, lesions or sores. HEMATOLOGIC : Denies easy bruising or bleeding. LYMPHATIC: Denies swollen, enlarged glands. NEUROLOGICAL: Denies confusion or altered mental status. Denies passing out or loss of consciousness. Denies dizziness or lightheadedness. Denies headache. Denies weakness or paralysis or loss of use of either side. Denies problems with gait or speech. Denies sensory loss, numbness, or tingling. Denies seizures. PSYCHIATRIC: Denies anxiety or stress. Denies depression, suicidal ideation, or homicidal ideation. ALL OTHER SYSTEMS REVIEWED AND NEGATIVE. PHYSICAL EXAMINATION: GENERAL: Well-appearing, well-nourished and in no acute distress. HEAD: Atraumatic, normocephalic. EYES: Pupils equal round and reactive to light, extraocular movements intact, conjunctiva are normal. ENT: Nares patent, oropharynx clear without exudates. Moist mucous membranes. NECK: Normal range of motion, supple without lymphadenopathy LUNGS: Breath sounds clear to auscultation bilaterally and equal. No wheezes rales or rhonchi. HEART: Regular rate and rhythm without murmurs ABDOMEN: Soft, nontender, nondistended abdomen. No guarding, no rebound. No masses appreciated. Female : deferred Musculoskeletal: Normal range of motion, no pitting or edema. No cyanosis. Unable to reproduce arm pain NEUROLOGICAL: Cranial nerves grossly intact. Normal speech, normal gait. Normal sensory, motor exams PSYCH: Normal mood, normal affect. SKIN: Warm, Dry, normal turgor, no rashes or lesions noted. Dictation was performed using Dragon voice recognition software Physical Exam - Vital signs Vitals: Temp Pulse Resp BP Pulse Ox 98.2 F 61 18 148/68 H 94 08/10/17 21:20 08/10/17 21:20 08/10/17 21:20 08/10/17 21:20 08/10/17 21:20 Course - Re-evaluation Re-evalutation: 08/11/17 01:33 Patient's chest pain is completely resolved she does have some right arm pain, Dr. Case request second set of troponins prior to admission 08/11/17 03:05 Second set of troponins negative - Vital Signs Vital signs: Temp Pulse Resp BP Pulse Ox 98.2 F 61 16 152/55 H 97 08/10/17 21:20 08/10/17 21:20 08/11/17 01:06 08/11/17 01:06 08/11/17 01:22 - Laboratory Result Diagrams: 08/10/17 22:50 08/10/17 22:50 Laboratory results interpreted by me: 08/10/17 08/10/17 22:50 22:50 Monocytes % 13.7 H Sodium 147.8 H AST 45 H - Diagnostic Test Radiology reviewed: Image reviewed, Reports reviewed - EKG Interpretation by Me EKG shows normal: Sinus rhythm, [place], Intervals, QRS Complexes Discharge - Discharge Clinical Impression: Chest pain Qualifiers: Chest pain type: unspecified Qualified Code(s): R07.9 - Chest pain, unspecified Condition: Stable Disposition: ADMITTED OBSERVATION Admitting Provider: Hospitalist Unit Admitted: Telemetry Referrals: CRISTO POE PA-C [Primary Care Provider] - Follow up as needed
[2017-08-11] MEDS ORDERED: OXYCODONE-ACETAMINOPHEN 5-325 MG TABLET PO ONE (01:48)
[2017-08-11 05:21] VITALS: BP 177/80
[2017-08-11] MEDS ORDERED: NITROGLYCERIN 0.4 MG/TAB 25 TAB/BOTTLE SL PRN (05:26)
[2017-08-11] MEDS ORDERED: MAG HYDROX/AL HYDROX/SIMETH SUSP 30 ML UDCUP PO PRN ×2 (05:26→10:00)
[2017-08-11] MEDS ORDERED: HYDRALAZINE HCL INJ/PF 20 MG/1 ML SDV IV PRN (05:34)
[2017-08-11] MEDS ORDERED: NA PHOS,M-B/NA PHOS,DI-BA (ADULT) 133 ML ENEMA PR PRN (05:36)
[2017-08-11] MEDS ORDERED: ATORVASTATIN CALCIUM 80 MG TABLET PO ONE (05:45)
[2017-08-11] MEDS ORDERED: LACTULOSE SYRUP 20 GM/30 ML UDCUP PO ONE (05:45)
--- NOTE | 2017-08-11 06:53 | PDOC H&P ---
History of Present Illness Admission Date/PCP: 08/11/17 05:26 CRISTO POE PA-C Patient complains of: Right arm and shoulder pain History of Present Illness: SHEY HORVATH is a 77 year old female with a history of opiate dependent chronic pain, hypertension and permanent pacemaker for unclear indication who presents after several hours of right arm and shoulder pain relieved by sublingual nitro 3. Patient admits to palpitations, radiation of pain down the arm, some nausea without vomiting. She denies previous episode. She admits negative cardiac stress test at [facility] in January 2017. Initial workup was unremarkable she is referred to the hospitalist for observation. Past Medical History Cardiac Medical History: Reports: Coronary Artery Disease, Hypertension, Heart Murmur Denies: Myocardial Infarction Pulmonary Medical History: Reports: Bronchitis, Pneumonia Denies: Asthma, Chronic Obstructive Pulmonary Disease (COPD), Tuberculosis Neurological Medical History: Denies: Seizures Endocrine Medical History: Reports: Hypothyroidism GI Medical History: Reports: Gastroesophageal Reflux Disease, Hiatal Hernia - constricted esophageal hernia Musculoskeltal Medical History: Reports: Arthritis - osteo Psychiatric Medical History: Reports: Depression - situational Hematology: Reports: Anemia Past Surgical History Past Surgical History: Reports: Cardiac Catheterization - stent, Cholecystectomy , Hysterectomy, Pacemaker Social History Information Source: Patient, [facility] Records Smoking Status: Never Smoker Frequency of Alcohol Use: None Hx Recreational Drug Use: No Drugs: None Hx Prescription Drug Abuse: No - Advance Directive Resuscitation Status: Full Code Family History Family History: None, Hypertension Parental Family History Reviewed: Yes Children Family History Reviewed: Yes Sibling(s) Family History Reviewed.: Yes Medication/Allergy Home Medications: Furosemide [Lasix 20 mg Tablet] 20 mg PO QPM 11/02/15 Furosemide [Lasix 20 mg Tablet] 40 mg PO QAM 11/02/15 Levothyroxine Sodium [Unithroid] 175 mcg PO DAILY 11/02/15 Oxycodone HCl 15 mg PO QID PRN 11/02/15 Sotalol HCl [Sotalol] 80 mg PO BID 11/02/15 Budesonide/Formoterol Fumarate [Symbicort HFA 160-4.5 mcg Inhaler 6 gm] 2 puff IH Q12 #0 inhaler 11/04/15 Losartan Potassium [Cozaar 50 mg Tablet] 50 mg PO Q12 #0 tablet 01/19/16 Morphine Sulfate [Ms-Contin Sr 30 mg Tablet] 30 mg PO Q12 #0 tablet.sa 11/04/15 Metronidazole [Flagyl] 500 mg PO TID #42 tablet 07/20/17 Allergies/Adverse Reactions: codeine [Codeine] Allergy (Verified 07/20/17 14:14) Vomiting Sulfa (Sulfonamide Antibiotics) Allergy (Verified 07/20/17 14:14) rash Review of Systems ROS unobtainable: Due to mental status - [place], Other - Answers felt unreliable given affirmative response to all questions. Physical Exam Vital Signs: Temp Pulse Resp BP Pulse Ox 98.2 F 61 13 177/80 H 96 08/10/17 21:20 08/10/17 21:20 08/11/17 05:01 08/11/17 05:01 08/11/17 05:01 General appearance: PRESENT: no acute distress, well-developed, well-nourished Head exam: PRESENT: atraumatic, normocephalic Eye exam: PRESENT: conjunctiva pink, EOMI, PERRLA. ABSENT: scleral icterus Ear exam: PRESENT: normal external ear exam Mouth exam: PRESENT: moist, tongue midline Neck exam: ABSENT: carotid bruit, JVD, lymphadenopathy, thyromegaly Respiratory exam: PRESENT: clear to auscultation brian. ABSENT: rales, rhonchi, wheezes Cardiovascular exam: PRESENT: RRR. ABSENT: diastolic murmur, rubs, systolic murmur Pulses: PRESENT: normal dorsalis pedis pul Vascular exam: PRESENT: normal capillary refill GI/Abdominal exam: PRESENT: normal bowel sounds, soft. ABSENT: distended, guarding, mass, organolmegaly, rebound, tenderness Rectal exam: PRESENT: deferred Extremities exam: PRESENT: full ROM. ABSENT: calf tenderness, clubbing, pedal edema Neurological exam: PRESENT: alert, awake, oriented to person, oriented to place , oriented to time, oriented to situation, CN II-XII grossly intact. ABSENT: motor sensory deficit Psychiatric exam: PRESENT: appropriate affect, normal mood. ABSENT: homicidal ideation, suicidal ideation Skin exam: PRESENT: dry, intact, warm. ABSENT: cyanosis, rash Results Impressions: Chest X-Ray 08/10/17 23:11 IMPRESSION: No acute cardiopulmonary findings. Assessment & Plan - Diagnosis (1) Atypical chest pain Is this a current diagnosis for this admission?: Yes Plan: Atypical chest pain though the patient's pain is atypical there are multiple risk factors for coronary artery disease and subsequently will observe and evaluation of acute coronary syndrome versus coronary artery disease with anginal equivalents. Cardiac monitoring blood pressure Q6 hours ,TSH, lipid profile, serial cardiac enzymes and consideration of cardiac stress test following evaluation of stress testing in January at [facility]. (2) Chronic pain Is this a current diagnosis for this admission?: Yes Plan: Home regiment with bowel prophylaxis (3) Hypertension Is this a current diagnosis for this admission?: Yes Plan: Home regiment with hydralazine as needed - Time Time Spent: 50 to 70 Minutes - Inpatient Certification Medical Necessity: Need Close Monitoring Due to Risk of Patient Decompensation
[2017-08-11 06:58] LABS: ANION GAP 13 (5-19); BLOOD UREA NITROGEN 9 mg/dL (7-20); CALCIUM 9.7 mg/dL (8.4-10.2); CARBON DIOXIDE 29 mmol/L (22-30); CHLORIDE 108 mmol/L (98-107); CREATININE RESULT 0.75 mg/dL (0.52-1.25); GLUCOSE 92 mg/dL (75-110); SODIUM 149.9 mmol/L (137-145)
[2017-08-11] MEDS ORDERED: FUROSEMIDE 20 MG TABLET PO SCH (08:00)
[2017-08-11 08:24] LABS: CREATINE KINASE MB 0.58 ng/mL (<4.55)
[2017-08-11 08:25] LABS: TROPONIN I < 0.012 ng/mL
[2017-08-11] MEDS ORDERED: LEVOTHYROXINE SODIUM 0.075 MG TABLET PO SCH (10:00)
[2017-08-11] MEDS ORDERED: BUDESONIDE/FORMOTEROL 160-4.5 MCG 60 PUFF/6 GM MDI IH SCH (10:00)
[2017-08-11] MEDS ORDERED: LOSARTAN POTASSIUM 50 MG TABLET PO SCH (10:00)
[2017-08-11] MEDS ORDERED: DOCUSATE SODIUM 100 MG CAPSULE PO SCH (10:00)
[2017-08-11] MEDS ORDERED: LEVOTHYROXINE SODIUM 0.1 MG TABLET PO SCH (10:00)
[2017-08-11] MEDS ORDERED: SOTALOL HCL 80 MG TABLET PO SCH (10:00)
[2017-08-11] MEDS ORDERED: LEVOTHYROXINE SODIUM 175 MCG PO SCH (10:00)
--- NOTE | 2017-08-11 18:09 | PDOC DISCHARGE SUMMARY ---
General - Admit/Disc Date/PCP Admission Date/Primary Care Provider: 08/11/17 05:26 CRISTO POE PA-C Discharge Date: 08/11/17 - Discharge Diagnosis (1) Atypical chest pain Is this a current diagnosis for this admission?: Yes Summary: Patient involvement of the right shoulder and right arm. This is a radicular nature consistent with a cervical spine impingement. Patient does report that she has a history of bulging disc in her cervical spine as well as spinal stenosis in her cervical area. Patient had negative troponins and had a normal stress test several months ago done by her supervisor [employer] sheets Dr. Chambers. (2) Coronary artery disease Is this a current diagnosis for this admission?: Yes (3) Hypothyroidism Is this a current diagnosis for this admission?: Yes (4) Gastroesophageal reflux disease Is this a current diagnosis for this admission?: Yes (5) Hypertension Is this a current diagnosis for this admission?: Yes - Additional Information Resuscitation Status: Full Code Discharge Diet: Cardiac Discharge Activity: Activity As Tolerated Home Medications: Amlodipine Besylate [Norvasc 10 mg Tablet] 10 mg PO DAILY 08/11/17 Diphenoxylate HCl/Atrop Sulf [Lomotil 2.5 mg Tablet] 2 tab PO QIDP PRN 08/11/17 Levothyroxine Sodium [Synthroid] 175 mcg PO DAILY 08/11/17 Losartan Potassium [Cozaar 50 mg Tablet] 50 mg PO DAILY 08/11/17 Metformin HCl [Glucophage 500 mg Tablet] 500 mg PO BIDACBS 08/11/17 Morphine Sulfate [Ms Contin] 30 mg PO Q12 08/11/17 Oxycodone HCl 15 mg PO Q6HP PRN 08/11/17 Potassium Citrate [Potassium Citrate ER] 10 meq PO DAILY 08/11/17 Prednisone 10 mg PO DAILY #39 tablet 08/11/17 Sotalol HCl [Sotalol AF] 80 mg PO BID 08/11/17 History of Present Illness History of Present Illness: SHEY HORVATH is a 77 year old female with a history of chronic pain on opiates chronically, hypertension as well as a history of coronary artery disease. She presented with pain in her right shoulder radiate down into her right arm. Patient reports that she had a negative cardiac stress test done in January 2017 done by her supervisor [employer] Dr. Chambers. The patient was admitted with atypical chest pain. Hospital Course Hospital Course: 77-year-old female who presented with atypical right-sided shoulder and arm pain. The patient was monitored on telemetry and had no cardiac arrhythmias. The patient had serial troponins were negative. The patient reports in January 2017 she had a Cardiolite stress test done at [place] that was normal. The patient's symptoms that she describes is consistent with a cervical radiculopathy. She will be sent home on a prednisone taper. The patient if she continues to have symptoms would benefit from imaging studies of her neck, however would treat empirically to see if she improves. All of her other medical problems were stable. Physical Exam Vital Signs: Temp Pulse Resp BP Pulse Ox 98.7 F 68 13 177/80 H 96 08/11/17 09:26 08/11/17 09:26 08/11/17 09:26 08/11/17 09:26 08/11/17 09:26 Intake & Output 08/10/17 08/11/17 08/12/17 06:59 06:59 06:59 Weight 148.4 kg 67.245 kg General appearance: PRESENT: no acute distress Eye exam: PRESENT: conjunctiva pink. ABSENT: scleral icterus Mouth exam: PRESENT: moist, tongue midline Neck exam: ABSENT: JVD Respiratory exam: PRESENT: clear to auscultation brian. ABSENT: rales, rhonchi, wheezes Cardiovascular exam: PRESENT: RRR. ABSENT: diastolic murmur, rubs, systolic murmur GI/Abdominal exam: PRESENT: normal bowel sounds, soft. ABSENT: distended, guarding, mass, organolmegaly, rebound, tenderness Extremities exam: ABSENT: calf tenderness, clubbing, pedal edema Neurological exam: PRESENT: alert, awake, oriented to person, oriented to place , oriented to time, oriented to situation, CN II-XII grossly intact. ABSENT: motor sensory deficit Psychiatric exam: PRESENT: appropriate affect Skin exam: PRESENT: dry, intact, warm. ABSENT: cyanosis, rash Results Laboratory Results: 08/11/17 07:50 CK-MB (CK-2) 0.58 Troponin I < 0.012 Impressions: Chest X-Ray 08/10/17 23:11 IMPRESSION: No acute cardiopulmonary findings. Qualifiers PATEINT BEING DISCHARGED WITH ANY OF THE FOLLOWING DIAGNOSIS?: No Plan Discharge Plan: Patient is discharged home in stable condition. Follow with primary care in 1- 2 weeks. Time Spent: Less than 30 Minutes
[2017-08-11] MEDS ORDERED: ATORVASTATIN CALCIUM 80 MG TABLET PO SCH (22:00)
[2017-08-12] MEDS ORDERED: FUROSEMIDE 40 MG TABLET PO SCH (08:00)
== END 2017-08-11 12:49 | disposition home or self-care (01) ==
LOC: ER 20:12 → EH 08-11 03:16 → UNDOADMOB 08-11 03:16 → EH 08-11 05:26
PROVIDERS: ADMIT Internal Medicine; ATTEND Internal Medicine
DX: R07.89 Other chest pain (principal); M48.02 Spinal stenosis, cervical region; I25.10 Atherosclerotic heart disease of native coronary artery without angina pectoris; E03.9 Hypothyroidism, unspecified; K21.9 Gastro-esophageal reflux disease without esophagitis; I10 Essential (primary) hypertension; G89.29 Other chronic pain; M25.511 Pain in right shoulder; M79.601 Pain in right arm; M19.90 Unspecified osteoarthritis, unspecified site; R00.2 Palpitations; R11.0 Nausea; Z79.891 Long term (current) use of opiate analgesic; Z95.0 Presence of cardiac pacemaker; Z90.49 Acquired absence of other specified parts of digestive tract; Z95.5 Presence of coronary angioplasty implant and graft; Z82.49 Family history of ischemic heart disease and other diseases of the circulatory system; Z90.710 Acquired absence of both cervix and uterus
CPT/HCPCS: 93005; 99285; 36415 ×2; 82553 ×2; 82550; 85025; 80048; 80053; 84484 ×2; 71010; 93010; A9270 ×8; J3490 ×2; G0378

== ENCOUNTER 2017-09-08 16:06 | Observation (INO) | payer MEDICARE, BC ==
[~2017-09-08 16:06] MED LIST: CHLORPHENIRAMINE MALEATE 4 MG TABLET PO ONE
[2017-09-08] MEDS ORDERED: IPRATROPIUM/ALBUTEROL 0.5-2.5 MG/3 ML AMPUL NEB ONE (16:34)
--- NOTE | 2017-09-08 16:35 | ER Document Report ---
ED Medical Screen (RME) - General Chief Complaint: Cough Stated Complaint: COUGH Time Seen by Provider: 09/08/17 16:30 Notes: I have greeted and performed a rapid initial assessment of this patient. A comprehensive ED assessment and evaluation of the patient, analysis of test results and completion of the medical decision making process will be conducted by additional ED providers. TRAVEL OUTSIDE OF THE [place] IN LAST 30 DAYS: No - Related Data Allergies/Adverse Reactions: codeine [Codeine] Allergy (Verified 09/08/17 16:12) Vomiting Sulfa (Sulfonamide Antibiotics) Allergy (Verified 09/08/17 16:12) rash Past Medical History - Social History Frequency of alcohol use: None Drug Abuse: None - Past Medical History Cardiac Medical History: Reports: Hx Coronary Artery Disease, Hx Hypertension, Hx Heart Murmur Denies: Hx Heart Attack Pulmonary Medical History: Reports: Hx Bronchitis, Hx Pneumonia Denies: Hx Asthma, Hx COPD, Hx Tuberculosis Neurological Medical History: Denies: Hx Cerebrovascular Accident, Hx Seizures Endocrine Medical History: Reports: Hx Hypothyroidism Renal/ Medical History: Reports: Hx Kidney Stones. Denies: Hx Peritoneal Dialysis GI Medical History: Reports: Hx Gastroesophageal Reflux Disease, Hx Hiatal Hernia - constricted esophageal hernia, Hx Liver Failure, Hx Ulcer Musculoskeltal Medical History: Reports Hx Arthritis - osteo Psychiatric Medical History: Reports: Hx Depression - situational Past Surgical History: Reports: Hx Cardiac Catheterization - stent, Hx Cardiac Surgery - pacemaker, Hx Cholecystectomy, Hx Hysterectomy, Hx Pacemaker - Immunizations Hx Diphtheria, Pertussis, Tetanus Vaccination: No History of Influenza Vaccine for 07/2017 - 12/2017 Season: Refused Physical Exam - Vital signs Vitals: Temp Pulse Resp BP Pulse Ox 99.2 F 75 18 130/69 H 94 09/08/17 16:12 09/08/17 16:12 09/08/17 16:12 09/08/17 16:12 09/08/17 16:12 Course - Vital Signs Vital signs: Temp Pulse Resp BP Pulse Ox 99.2 F 75 18 130/69 H 94 09/08/17 16:12 09/08/17 16:12 09/08/17 16:12 09/08/17 16:12 09/08/17 16:12
[2017-09-08] MEDS ORDERED: METHYLPREDNISOLONE INJ 125 MG/2 ML SDV IV ONE (16:55)
--- NOTE | 2017-09-08 17:05 | ER Document Report ---
ED Respiratory Problem - General Chief Complaint: Cough Stated Complaint: COUGH Time Seen by Provider: 09/08/17 16:30 Mode of Arrival: Ambulatory Information source: Patient, Relative Notes: Patient is a 77-year-old female comes emergency room with a complaint of cough and congestion. Patient and family member states that she has been sick for approximately 2 weeks. She went and saw her primary care provider Dr. Laura Will on the of this month and was told that this was most likely a viral presentation. Patient states Dr. Shah did not want to start her on antibiotic because a few months before she had been diagnosed with C. difficile colitis and was sick for a long time. So patient was not having fevers at that time and it was elected to stay off antibiotics. Patient states for the past 3 or 4 days it has been increasing to where she cannot sleep at night. She is coughing up some thick green mucoid sputum. She is unable to lay down for long without getting the coughing fits. Coughing fits of put her into position where she is having chest pain with coughing. She is on oxygen at home not sure if she has a history of COPD per patient. Has a long cardiac history with pacer defibrillator placement with stent placements in the past. No history of strokes. She states she is extremely uncomfortable currently because of the coughing. TRAVEL OUTSIDE OF THE [place] IN LAST 30 DAYS: No - HPI Patient complains to provider of: Cough, Hurts to breath, Short of breath Onset: Last week Duration: Continuous, Worse/persistent Initiating Event: Exertion, URI Quality of pain: Achy Severity: Severe Pain Level: 3 Context: Hx COPD Short of Breath: Moderate Chest pain/discomfort: Constant, Worse with deep breaths Cough: Productive Sputum amount: Large, Copious Sputum color: Valdes, Green Sputum consistency: Mucoid, Thick Associated symptoms: Ankle/leg swelling, Anxiety, Congestion, Cough, Difficulty breathing, Short of breath, Wheezing Worsened by: Exertion coughing Similar symptoms previously: Yes Recently seen / treated by doctor: Yes - Related Data Allergies/Adverse Reactions: codeine [Codeine] Allergy (Verified 09/08/17 16:12) Vomiting Sulfa (Sulfonamide Antibiotics) Allergy (Verified 09/08/17 16:12) rash Past Medical History - General Information source: Patient, Relative - Social History Smoking Status: Never Smoker Cigarette use (# per day): No Chew tobacco use (# tins/day): No Smoking Education Provided: No Frequency of alcohol use: None Drug Abuse: None Lives with: Family Family History: None, Hypertension Patient has suicidal ideation: No Patient has homicidal ideation: No - Past Medical History Cardiac Medical History: Reports: Hx Coronary Artery Disease, Hx Hypertension, Hx Heart Murmur Denies: Hx Heart Attack Pulmonary Medical History: Reports: Hx Bronchitis, Hx Pneumonia Denies: Hx Asthma, Hx COPD, Hx Tuberculosis Neurological Medical History: Denies: Hx Cerebrovascular Accident, Hx Seizures Endocrine Medical History: Reports: Hx Hypothyroidism Renal/ Medical History: Reports: Hx Kidney Stones. Denies: Hx Peritoneal Dialysis GI Medical History: Reports: Hx Gastroesophageal Reflux Disease, Hx Hiatal Hernia - constricted esophageal hernia, Hx Liver Failure, Hx Ulcer Musculoskeltal Medical History: Reports Hx Arthritis - osteo Psychiatric Medical History: Reports: Hx Depression - situational Past Surgical History: Reports: Hx Cardiac Catheterization - stent, Hx Cardiac Surgery - pacemaker, Hx Cholecystectomy, Hx Hysterectomy, Hx Pacemaker - Immunizations Hx Diphtheria, Pertussis, Tetanus Vaccination: No Hx Pneumococcal Vaccination: 10/17/06 Review of Systems - Review of Systems Constitutional: Weakness EENT: Nose congestion, Nose discharge, Sinus pressure, Mouth pain Cardiovascular: Chest pain, Dyspnea, Edema, Paroxysmal Nocturnal Dysp Respiratory: Cough, Hurts to breathe, Short of breath, Sputum, Wheezing Gastrointestinal: No symptoms reported Genitourinary: No symptoms reported Female Genitourinary: No symptoms reported Musculoskeletal: No symptoms reported Skin: No symptoms reported Hematologic/Lymphatic: No symptoms reported Neurological/Psychological: No symptoms reported Physical Exam - Vital signs Vitals: Temp Pulse Resp BP Pulse Ox 99.2 F 75 18 130/69 H 94 09/08/17 16:12 09/08/17 16:12 09/08/17 16:12 09/08/17 16:12 09/08/17 16:12 Interpretation: Hypertensive - General General appearance: Other - Ill-appearing In distress: None - HEENT Head: Normocephalic, Atraumatic Eyes: Normal Tympanic membrane: Bulging Sinus: Normal Nasal: Other - Bilateral nasal congestion Mouth/Lips: Normal Mucous membranes: Moist Pharynx: Other - Examination of head and upper airway showed nasal mucosa to be moderately erythematous and edematous with bilateral nasal congestion noted. Patient also has bilateral TM bulging with no air-fluid levels. Patient displays some mild frontal maxillary tenderness to palpation. Posterior pharynx shows moderate amount of drainage in the posterior pharynx which is a greenish valdes type thick material. Uvula is midline mild erythema no exudate no encroachment on the uvula at this time airways patent. Neck: Normal - Respiratory Chest status: Nontender Breath sounds: Other - Auscultation patient's lung pérez show she has bilateral breath sounds breath sounds markedly decreased throughout patient has inspiratory expiratory wheeze noted a with rhonchi scattered throughout although greater in the upper anterior chest portion. Patient is productive valdes screening sputum production on her cough. - Cardiovascular Rhythm: Regular Heart sounds: Normal auscultation Murmur: No - Abdominal Inspection: Normal Distension: No distension Bowel sounds: Normal Tenderness: Nontender Organomegaly: No organomegaly - Extremities General upper extremity: Normal inspection General lower extremity: Tender, Edema. No: Normal inspection, Nontender, Normal color, Normal ROM, Normal strength, Normal temperature, Normal weight bearing, Evelio's sign, Other Calf: Tender, Other - Mild edema noted from the knee down. Ankle: Edema, Limited ROM, Other - Examination of patient's lower extremities show that she has slight pitting edema bilateral lower extremities. Starting about the knees downward. Maximal 1+ at the ankle and foot area. Foot: Tender, No evidence of FB - Neurological Neuro grossly intact: Yes Cognition: Normal Orientation: AAOx4 [facility] Coma Scale Eye Opening: Spontaneous [place] Coma Scale Verbal: Oriented [place] Coma Scale Motor: Obeys Commands [place] Coma Scale Total: 15 Speech: Normal Course - Vital Signs Vital signs: Temp Pulse Resp BP Pulse Ox 99.8 F 75 31 H 121/65 93 09/08/17 18:08 09/08/17 16:12 09/08/17 18:01 09/08/17 18:01 09/08/17 18:01 - Laboratory Result Diagrams: 09/08/17 17:16 09/08/17 17:16 Laboratory results interpreted by me: 09/08/17 09/08/17 09/08/17 17:16 17:16 17:16 WBC 13.6 H Seg Neutrophils % 81.2 H Lymphocytes % 8.2 L Absolute Neutrophils 11.0 H Direct Bilirubin 0.5 H AST 42 H ALT 60 H NT-Pro-B Natriuret Pep 759 H - Transfer of Care Notes: 09/08/17 19:12 As stated earlier patient came in by EMS and one-story was heard, the son came in a second story with her, and then the daughter showed up in the third story was here. I have elected at that point to premature on a gambit of diagnostic testing since I did not know exactly what is looking for. The daughter gets here and kind of confirms that patient has not been feeling well for a couple of days. Daughter also states that she went to her primary care last week with chest pain and was diagnosed more or less with a viral upper respiratory cold. Daughter also states that today when she was contacted by the [facility] they told her patient was having chest pain. My physical exam showed the patient was having more abdominal pain left lower quadrant. Neurologically patient was intact but given the history of new onset headache CT of the head was done. Currently we are waiting on CT head CT abdomen and pelvis without contrast and cardiac workup with CBC CMP troponin urine all pending still. I am turning the patient over to the night provider Sergio Perry pending the findings of the CT reports and the labs given patient is a DO NOT RESUSCITATE if this is a diverticulitis that can be treated outpatient or dehydration with fluid resuscitation then patient can be discharged back to the [facility] for follow-up with her primary care provider. If for any reason this leads into a more severe case of chest pain with abnormal troponins then patient will probably need to be admitted or monitor for 23 hours. 09/08/17 19:56 I discussed case with Dr. Case as well he is admitting patient to the medical floor observation tonight Discharge - Discharge Clinical Impression: Hypoxia Condition: Fair Disposition: ADMITTED OBSERVATION Admitting Provider: Dr. Case Unit Admitted: Medical Floor
[2017-09-08] MEDS ORDERED: LORAZEPAM INJ 2 MG/1 ML VIAL IV ONE (17:19)
[2017-09-08 17:31] LABS: ABSOLUTE BASOPHILS # (AUTO) 0.1 10^3/uL (0.0-0.2); ABSOLUTE LYMPHOCYTES (AUTO) 1.1 10^3/uL (0.5-4.7); ABSOLUTE MONOCYTES (AUTO) 1.3 10^3/uL (0.1-1.4); EOSINOPHILS % (AUTO) 0.1 % (0-6); HEMOGLOBIN 12.2 g/dL (12.0-15.5); HGB HCT DIFFERENCE 0.6; LYMPHOCYTES % (AUTO) 8.2 % (13-45); MEAN CORPUSCULAR HGB CONC 33.8 g/dL (32.0-36.0); MEAN CORPUSCULAR VOLUME 92 fl (80-97); MONOCYTES % (AUTO) 9.5 % (3-13); RED BLOOD COUNT 3.92 10^6/uL (3.72-5.28); RED CELL DISTRIBUTION WIDTH 13.6 % (11.5-14.0); SEGMENTED NEUTROPHILS % (AUTO) 81.2 % (42-78); WHITE BLOOD COUNT 13.6 10^3/uL (4.0-10.5)
[2017-09-08 17:47] LABS: ALANINE AMINOTRANSFERASE 60 U/L (9-52); ALBUMIN 4.1 g/dL (3.5-5.0); ALKALINE PHOSPHATASE 105 U/L (38-126); ANION GAP 17 (5-19); ASPARTATE AMINO TRANSFERASE 42 U/L (14-36); BILIRUBIN,DIRECT 0.5 mg/dL (0.0-0.4); BILIRUBIN,TOTAL 0.9 mg/dL (0.2-1.3); BLOOD UREA NITROGEN 10 mg/dL (7-20); CALCIUM 9.2 mg/dL (8.4-10.2); CARBON DIOXIDE 26 mmol/L (22-30); CHLORIDE 98 mmol/L (98-107); GLUCOSE 101 mg/dL (75-110); POTASSIUM 4.3 mmol/L (3.6-5.0); SODIUM 141.1 mmol/L (137-145); TOTAL PROTEIN 7.7 g/dL (6.3-8.2)
[2017-09-08 18:02] LABS: TROPONIN I < 0.012 ng/mL
--- NOTE | 2017-09-08 19:32 | RADIOLOGY REPORT (SQ) ---
EXAM DESCRIPTION: CHEST PA/LAT COMPLETED DATE/TIME: 09/08/2017 7:11 pm REASON FOR STUDY: cough COMPARISON: Chest films 08/10/2017 CT chest 06/10/2017, 03/20/2017 EXAM PARAMETERS: NUMBER OF VIEWS: two views TECHNIQUE: Digital Frontal and Lateral radiographic views of the chest acquired. RADIATION DOSE: NA LIMITATIONS: none FINDINGS: LUNGS AND PLEURA: Mild pulmonary vascular congestion. No pulmonary edema, pleural effusio ns. No focal dense consolidation worrisome for pneumonia. No pneumothorax. MEDIASTINUM AND HILAR STRUCTURES: No masses or contour abnormalities. HEART AND VASCULAR STRUCTURES: Heart normal size. No evidence for failure. BONES: No acute findings. HARDWARE: Left-sided pacemaker/defibrillator. Clips right upper quadrant post cholecystectomy P OTHER: No other significant finding. IMPRESSION: Pulmonary vascular congestion. No pulmonary edema TECHNICAL DOCUMENTATION: JOB ID: [id number] [email or web address]- All Rights Reserved
[2017-09-08] MEDS ORDERED: CEFTRIAXONE 1 GM/D5W RTU 1 GM/50 ML RTUPB IV ONE (19:36)
[2017-09-08] MEDS ORDERED: CHLORPHENIRAMINE MALEATE 4 MG TABLET PO ONE (19:51)
[2017-09-08] MEDS ORDERED: LACTULOSE SYRUP 20 GM/30 ML UDCUP PO ONE (19:51)
[2017-09-08] MEDS ORDERED: FUROSEMIDE INJ/PF 40 MG/4 ML SDV IV ONE (19:52)
[2017-09-08] MEDS ORDERED: GUAIFENESIN SYRP 200 MG/10 ML UDC PO PRN (19:53)
[2017-09-08] MEDS ORDERED: IPRATROPIUM/ALBUTEROL 0.5-2.5 MG/3 ML AMPUL NEB PRN (19:53)
[2017-09-08] MEDS ORDERED: FUROSEMIDE INJ/PF 20 MG/2 ML SDV IV ONE (19:55)
[2017-09-08] MEDS: IPRATROPIUM/ALBUTEROL 0.5-2.5 MG/3 ML AMPUL NEB SCH (20:53)
[2017-09-09] MEDS ORDERED: SOTALOL HCL 80 MG TABLET ONE (00:27)
[2017-09-09] MEDS ORDERED: FLUTICASONE NASAL SPRAY 50 MCG/SPRY 120 SPRAY/16 GM ONE (00:28)
[2017-09-09] MEDS ORDERED: CHLORPHENIRAMINE MALEATE 4 MG TABLET ONE (00:28)
[2017-09-09] MEDS ORDERED: FUROSEMIDE INJ/PF 40 MG/4 ML SDV IV ONE (00:30)
[2017-09-09] MEDS ORDERED: LACTULOSE SYRUP 20 GM/30 ML UDCUP PO ONE (00:30)
[2017-09-09] MEDS: LEVOFLOXACIN 750 MG/D5W RTU 750 MG/150 ML RTUPB IV SCH ×2 (00:38→21:17)
[2017-09-09] MEDS: HEPARIN SOD (PORCINE) 5,000 UNIT/ML 1 ML SYRINGE SUBCUT SCH ×4 (00:45→21:17)
[2017-09-09] MEDS: FLUTICASONE NASAL SPRAY 50 MCG/SPRY 120 SPRAY/16 GM NASL SCH ×3 (00:49→21:17)
[2017-09-09] MEDS: GUAIFENESIN 600 MG TABLET.SA PO SCH ×3 (00:52→21:17)
[2017-09-09] MEDS: SOTALOL HCL 80 MG TABLET PO SCH ×3 (00:54→21:17)
[2017-09-09] MEDS: IPRATROPIUM/ALBUTEROL 0.5-2.5 MG/3 ML AMPUL NEB SCH ×4 (01:35→20:00)
[2017-09-09 05:07] LABS: ABSOLUTE BASOPHILS # (AUTO) 0.1 10^3/uL (0.0-0.2); ABSOLUTE LYMPHOCYTES (AUTO) 1.1 10^3/uL (0.5-4.7); ABSOLUTE MONOCYTES (AUTO) 0.5 10^3/uL (0.1-1.4); ABSOLUTE NEUT (AUTO) 11.9 10^3/uL (1.7-8.2); BASOPHILS % (AUTO) 0.8 % (0-2); HEMATOCRIT 37.4 % (36.0-47.0); HEMOGLOBIN 12.5 g/dL (12.0-15.5); HGB HCT DIFFERENCE 0.1; MEAN CORPUSCULAR HEMOGLOBIN 30.2 pg (27.0-33.4); MEAN CORPUSCULAR HGB CONC 33.3 g/dL (32.0-36.0); MEAN CORPUSCULAR VOLUME 91 fl (80-97); MONOCYTES % (AUTO) 3.4 % (3-13); RED BLOOD COUNT 4.12 10^6/uL (3.72-5.28); RED CELL DISTRIBUTION WIDTH 13.6 % (11.5-14.0); SEGMENTED NEUTROPHILS % (AUTO) 87.8 % (42-78); WHITE BLOOD COUNT 13.6 10^3/uL (4.0-10.5)
[2017-09-09 05:31] LABS: ANION GAP 16 (5-19); BLOOD UREA NITROGEN 11 mg/dL (7-20); CALCIUM 9.2 mg/dL (8.4-10.2); CARBON DIOXIDE 28 mmol/L (22-30); CHLORIDE 99 mmol/L (98-107); CREATININE RESULT 0.68 mg/dL (0.52-1.25); GLUCOSE 172 mg/dL (75-110); POTASSIUM 3.8 mmol/L (3.6-5.0); SODIUM 143.4 mmol/L (137-145)
[2017-09-09] MEDS ORDERED: LEVOTHYROXINE SODIUM 0.1 MG TABLET PO SCH (06:00)
[2017-09-09] MEDS: LEVOTHYROXINE SODIUM 0.075 MG TABLET PO SCH (06:07)
--- NOTE | 2017-09-09 06:51 | PDOC H&P ---
History of Present Illness Admission Date/PCP: 09/08/17 20:12 Patient complains of: Shortness of breath and cough History of Present Illness: SHEY HORVATH is a 77 year old female with a past medical history of opiate dependent chronic pain, hypertension, permanent pacemaker, COPD chronic bronchitis and recurrent pneumonia and UTI. Patient presents with shortness of breath and productive cough which is worsened from baseline approximately 5 days ago she was diagnosed with viral bronchitis and treated symptomatically without significant improvement prompting her to seek evaluation emergency room where she is found to have sinus congestion with a postnasal drip, leukocytosis , cleaning purulent sputum, chest x-ray suggestive of pulmonary edema and elevated BNP. She receives Lasix and empiric antibiotics and referred to the hospitalist for admission. She denies chest pain nausea or vomiting. Past Medical History Cardiac Medical History: Reports: Coronary Artery Disease, Hypertension, Heart Murmur Denies: Myocardial Infarction Pulmonary Medical History: Reports: Bronchitis, Pneumonia Denies: Asthma, Chronic Obstructive Pulmonary Disease (COPD), Tuberculosis Neurological Medical History: Denies: Seizures Endocrine Medical History: Reports: Hypothyroidism GI Medical History: Reports: Gastroesophageal Reflux Disease, Hiatal Hernia - constricted esophageal hernia Musculoskeltal Medical History: Reports: Arthritis - osteo Psychiatric Medical History: Reports: Depression - situational Hematology: Reports: Anemia Past Surgical History Past Surgical History: Reports: Cardiac Catheterization - stent, Cholecystectomy , Hysterectomy, Pacemaker Social History Information Source: Patient, [facility] Records Lives with: Family Smoking Status: Never Smoker Frequency of Alcohol Use: None Hx Recreational Drug Use: No Drugs: None Hx Prescription Drug Abuse: No - Advance Directive Resuscitation Status: Full Code Family History Family History: None, Hypertension Parental Family History Reviewed: Yes Children Family History Reviewed: Yes Sibling(s) Family History Reviewed.: Yes Medication/Allergy Home Medications: Amlodipine Besylate [Norvasc 10 mg Tablet] 10 mg PO DAILY 08/11/17 Levothyroxine Sodium [Synthroid] 175 mcg PO DAILY 08/11/17 Losartan Potassium [Cozaar 50 mg Tablet] 50 mg PO DAILY 08/11/17 Morphine Sulfate [Ms Contin] 30 mg PO Q12 08/11/17 Oxycodone HCl 15 mg PO Q6HP PRN 08/11/17 Potassium Citrate [Potassium Citrate ER] 10 meq PO DAILY 08/11/17 Sotalol HCl [Sotalol AF] 80 mg PO BID 08/11/17 Allergies/Adverse Reactions: codeine [Codeine] Allergy (Verified 09/08/17 16:12) Vomiting Sulfa (Sulfonamide Antibiotics) Allergy (Verified 09/08/17 16:12) rash Review of Systems Constitutional: ABSENT: chills, fever(s), headache(s), weight gain, weight loss Eyes: ABSENT: visual disturbances Ears: ABSENT: hearing changes Cardiovascular: ABSENT: chest pain, dyspnea on exertion, edema, orthropnea, palpitations Respiratory: PRESENT: cough, dyspnea, sputum. ABSENT: hemoptysis Gastrointestinal: ABSENT: abdominal pain, constipation, diarrhea, hematemesis, hematochezia, nausea, vomiting Genitourinary: PRESENT: dysuria. ABSENT: hematuria Musculoskeletal: ABSENT: joint swelling Integumentary: ABSENT: rash, wounds Neurological: ABSENT: abnormal gait, abnormal speech, confusion, dizziness, focal weakness, syncope Psychiatric: ABSENT: anxiety, depression, homidical ideation, suicidal ideation Endocrine: ABSENT: cold intolerance, heat intolerance, polydipsia, polyuria Hematologic/Lymphatic: ABSENT: easy bleeding, easy bruising Physical Exam Vital Signs: Temp Pulse Resp BP Pulse Ox 98.9 F 91 20 122/56 L 96 09/08/17 23:39 09/09/17 01:35 09/09/17 01:35 09/08/17 23:39 09/09/17 01:35 Intake & Output 09/07/17 09/08/17 09/09/17 11:59 11:59 11:59 Output Total 100 Balance -100 General appearance: PRESENT: cooperative, mild distress Head exam: PRESENT: atraumatic, normocephalic Eye exam: PRESENT: conjunctiva pink, EOMI, PERRLA. ABSENT: scleral icterus Ear exam: PRESENT: normal external ear exam Mouth exam: PRESENT: moist, tongue midline Neck exam: ABSENT: carotid bruit, JVD, lymphadenopathy, thyromegaly Respiratory exam: PRESENT: accessory muscle use, clear to auscultation brian, symmetrical, tachypnea. ABSENT: rales, rhonchi, wheezes Cardiovascular exam: PRESENT: RRR. ABSENT: diastolic murmur, rubs, systolic murmur Pulses: PRESENT: normal dorsalis pedis pul Vascular exam: PRESENT: normal capillary refill GI/Abdominal exam: PRESENT: normal bowel sounds, soft. ABSENT: distended, guarding, mass, organolmegaly, rebound, tenderness Rectal exam: PRESENT: deferred Extremities exam: PRESENT: calf tenderness Neurological exam: PRESENT: alert, awake, oriented to person, oriented to place , oriented to time, oriented to situation, CN II-XII grossly intact. ABSENT: motor sensory deficit Psychiatric exam: PRESENT: anxious Skin exam: PRESENT: dry, intact, warm. ABSENT: cyanosis, rash Results Laboratory Results: 09/09/17 04:58 09/09/17 04:58 09/09/17 09/09/17 04:58 04:58 WBC 13.6 H RBC 4.12 Hgb 12.5 Hct 37.4 MCV 91 MCH 30.2 MCHC 33.3 RDW 13.6 Plt Count 250 Seg Neutrophils % 87.8 H Lymphocytes % 8.0 L Monocytes % 3.4 Eosinophils % 0.0 Basophils % 0.8 Absolute Neutrophils 11.9 H Absolute Lymphocytes 1.1 Absolute Monocytes 0.5 Absolute Eosinophils 0.0 Absolute Basophils 0.1 Sodium 143.4 Potassium 3.8 Chloride 99 Carbon Dioxide 28 Anion Gap 16 BUN 11 Creatinine 0.68 Est GFR ( Amer) > 60 Est GFR (Non-Af Amer) > 60 Glucose 172 H Calcium 9.2 Impressions: Chest X-Ray 09/08/17 16:56 IMPRESSION: Pulmonary vascular congestion. No pulmonary edema Assessment & Plan - Diagnosis (1) Acute sinusitis Qualifiers: Sinusitis location: maxillary Is this a current diagnosis for this admission?: Yes Plan: Chlorpheniramine, Flonase empiric antibiotic follow-up CBC (2) Acute bronchitis Is this a current diagnosis for this admission?: Yes Plan: As above in addition to flutter valve, incentive spirometry and chest PT. IV Levaquin given recent history of Levaquin sensitive pseudomonas in the sputum. (3) Congestive heart failure Is this a current diagnosis for this admission?: Yes Plan: Possibly secondary to hyperthyroidism empiric IV Lasix 1 evaluate TSH and BiPAP as needed (4) Hyperthyroidism Is this a current diagnosis for this admission?: Yes Plan: Evaluate TSH for possible causes of pulmonary edema. (5) History of Clostridium difficile colitis Is this a current diagnosis for this admission?: Yes Plan: Recent history of C. difficile colitis at increased risk given Levaquin. Probiotic ordered a low threshold for C. difficile tox screen and p.o. vancomycin - Time Time Spent: 50 to 70 Minutes - Inpatient Certification Medical Necessity: Need Close Monitoring Due to Risk of Patient Decompensation
[2017-09-09] MEDS ORDERED: LACTOBACILLUS ACIDOPHILUS 250 MG TAB PO ONE (07:00)
[2017-09-09] MEDS: AMLODIPINE BESYLATE 10 MG TABLET PO SCH (09:44)
[2017-09-09] MEDS: LACTOBACILLUS ACIDOPHILUS 250 MG TAB PO SCH ×2 (09:45→18:57)
[2017-09-09] MEDS: POTASSIUM CHLORIDE 10 MEQ TABLET.SA PO SCH (09:46)
[2017-09-09] MEDS: LOSARTAN POTASSIUM 50 MG TABLET PO SCH (09:46)
[2017-09-09] MEDS: LORAZEPAM 1 MG TABLET PO PRN ×2 (12:50→21:17)
--- NOTE | 2017-09-09 14:40 | EKG REPORT ---
SEVERITY:- ABNORMAL ECG - AFIB/FLUTTER AND VENTRICULAR-PACED RHYTHM : Confirmed by: Griselda Lo MD 09-Sep-2017 14:39:14
[2017-09-09 15:29] LABS: APPEARANCE,URINE CLEAR; BILIRUBIN,URINE NEGATIVE (NEGATIVE); GLUCOSE, URINE NEGATIVE (NEGATIVE); KETONES,URINE NEGATIVE (NEGATIVE); LEUKOCYTE ESTERASE,URINE SMALL (NEGATIVE); NITRITE,URINE NEGATIVE (NEGATIVE); PROTEIN,URINE NEGATIVE (NEGATIVE); URINE SPECIFIC GRAVITY 1.006; UROBILINOGEN,URINE NEGATIVE mg/dL (<2.0)
[2017-09-09] MEDS: ACETAMINOPHEN 325 MG TABLET PO PRN (21:17)
[2017-09-10] MEDS: IPRATROPIUM/ALBUTEROL 0.5-2.5 MG/3 ML AMPUL NEB SCH ×2 (01:53→07:26)
[2017-09-10] MEDS: LEVOTHYROXINE SODIUM 0.075 MG TABLET PO SCH (05:23)
[2017-09-10] MEDS: LORAZEPAM 1 MG TABLET PO PRN (05:23)
[2017-09-10] MEDS: ACETAMINOPHEN 325 MG TABLET PO PRN (05:23)
[2017-09-10] MEDS: HEPARIN SOD (PORCINE) 5,000 UNIT/ML 1 ML SYRINGE SUBCUT SCH (05:23)
[2017-09-10] MEDS: FLUTICASONE NASAL SPRAY 50 MCG/SPRY 120 SPRAY/16 GM NASL SCH (08:59)
[2017-09-10] MEDS: SOTALOL HCL 80 MG TABLET PO SCH (09:00)
[2017-09-10] MEDS: GUAIFENESIN 600 MG TABLET.SA PO SCH (09:01)
[2017-09-10] MEDS: POTASSIUM CHLORIDE 10 MEQ TABLET.SA PO SCH (09:01)
[2017-09-10] MEDS: LOSARTAN POTASSIUM 50 MG TABLET PO SCH (09:02)
[2017-09-10] MEDS: AMLODIPINE BESYLATE 10 MG TABLET PO SCH (09:02)
[2017-09-10] MEDS: LACTOBACILLUS ACIDOPHILUS 250 MG TAB PO SCH (09:02)
[2017-09-10] MEDS ORDERED: ALPRAZOLAM 0.25 MG TABLET PO PRN (09:52)
[2017-09-10 10:47] VITALS: BP 130/69
--- NOTE | 2017-09-10 11:38 | DISCHARGE SUMMARY E ---
Discharge Summary NAME: SHEY HORVATH : 1940 AGE: 77Y ADMITTED: 09/08/2017 DISCHARGED: 09/10/2017 ADMISSION DIAGNOSES: 1. Acute sinusitis. 2. Acute bronchitis. 3. Congestive heart failure. 4. History of C. diff colitis. 5. Hyperthyroidism. DISCHARGE DIAGNOSES: 1. Acute bronchitis. 2. COPD exacerbation. 3. Acute hypoxic respiratory failure, on oxygen at home. 4. Yhnkg-wy-pnewdfw hypoxic respiratory failure, on oxygen at home. 5. Congestive heart failure, chronic. 6. C. diff colitis, on treatment. HOSPITAL COURSE: The patient is a 77-year-old female who has history of opiate dependence, chronic pain, hypertension, pacemaker, COPD, chronic bronchitis, recurrent pneumonia, recurrent UTI. She was admitted with shortness of breath. She was found to have productive cough, but chest x-ray did not show any pneumonia. It was thought to be maybe viral bronchitis. She was treated with nebulizer and steroids and antibiotics. She received and the patient did well. Today she is doing much better. She had x-ray that did not show pneumonia. She uses oxygen at home as well as inhaler and also prescribed Xanax to take for anxiety. The patient had an appointment with Dr. Warren. He is her primary care physician and she will see him soon. The patient is stable to be discharged home today. PHYSICAL EXAMINATION UPON DISCHARGE: GENERAL: The patient is lying in bed, comfortable. Not in distress. VITALS SIGNS: Heart 67, respiratory 14, saturation 91% on 2 L. HEENT: Head normocephalic, atraumatic. Pupils round and reactive to light and accommodation bilaterally. Extraocular movements intact. Ears: Tympanic membranes intact bilaterally. No discharge from the ears. No discharge from the nose. NECK: Supple. No increased JVD. No thyromegaly. No lymphadenopathy. CARDIOVASCULAR: Normal S1, S2. Regular rate and rhythm. No murmur. No gallop. RESPIRATORY: Few bilateral wheezing and crackles. ABDOMEN: Soft. MUSCULOSKELETAL: No edema. NEUROLOGIC: Awake, alert. SKIN: No rash. LABORATORY: White blood count 13.6, hemoglobin 12.5. Sodium 143, potassium 3.8. DISCHARGE INSTRUCTIONS: Discharged patient home. MEDICATIONS: 1. Synthroid 175 mcg p.o. daily. 2. Lomotil *------* mg t.i.d. 3. Bentyl 10 mg capsule t.i.d. 4. Sotalol 80 mg p.o. b.i.d. 5. Oxycodone 15 mg p.o. q.6 hours. 6. Macrobid 100 capsule q.12 hours. 7. MS Contin 30 mg p.o. q.12 hours. 8. Metformin 500 mg p.o. b.i.d. 9. Losartan 50 mg p.o. q.12. 10. Amlodipine 10 mg p.o. daily. 11. Potassium chloride 10 mg p.o. daily. 12. Xanax 0.25 mg p.o. daily p.r.n. FOLLOWUP: 1. Follow up with Dr. Warren in 1 week. 2. Follow up with primary care physician in 1 week. DIET: Cardiac diet. ACTIVITY: As tolerated. OTHER INSTRUCTIONS: Use home oxygen and inhaler. Spent 40 minutes. DICTATING PHYSICIAN: DARWIN MINOR M.D. [id number] PHY#: [id number] ID: [id number] JOB#: [id number] ACCT: [id number] cc:ALPESH HUNT M.D., ABDELAZIZ M.D. > MTDD
--- NOTE | 2017-09-13 13:37 | EKG REPORT ---
SEVERITY:- ABNORMAL ECG - ATRIAL-SENSED VENTRICULAR-PACED RHYTHM : Confirmed by: Chi Hodgson MD 13-Sep-2017 13:36:31
== END 2017-09-10 11:35 | disposition home or self-care (01) ==
LOC: ER 16:06 → EH 20:12 → 4S 22:03
PROVIDERS: ADMIT Internal Medicine; ATTEND Internal Medicine
PROC: 3E0F7GC Introduction of Other Therapeutic Substance into Respiratory Tract, Via Natural or Artificial Opening (ICD-10-PCS; principal; 2017-09-08)
DX: J20.9 Acute bronchitis, unspecified (principal); J44.0 Chronic obstructive pulmonary disease with (acute) lower respiratory infection; J44.1 Chronic obstructive pulmonary disease with (acute) exacerbation; J96.21 Acute and chronic respiratory failure with hypoxia; I11.0 Hypertensive heart disease with heart failure; I50.9 Heart failure, unspecified; A04.72 Enterocolitis due to Clostridium difficile, not specified as recurrent; F41.9 Anxiety disorder, unspecified; G89.29 Other chronic pain; F11.20 Opioid dependence, uncomplicated; E05.90 Thyrotoxicosis, unspecified without thyrotoxic crisis or storm; Z87.01 Personal history of pneumonia (recurrent); Z99.81 Dependence on supplemental oxygen; Z79.899 Other long term (current) drug therapy; Z95.5 Presence of coronary angioplasty implant and graft; Z90.49 Acquired absence of other specified parts of digestive tract; Z82.49 Family history of ischemic heart disease and other diseases of the circulatory system; Z95.810 Presence of automatic (implantable) cardiac defibrillator; Z66 Do not resuscitate
CPT/HCPCS: 93005; 94640 ×4; 99285; 96375; 96365; 36415 ×2; 87040; 87070; 87205; 83605; 84443; 85025 ×2; 87077; 80048; 80053; 81001; 84484; 87186; 83880; 71020; 93010; G0378 ×4; A9270 ×25; J1644 ×2; J1940; J2930; J2060; J3490 ×2; J0696; J1956; J7620

== ENCOUNTER → 2018-01-25 | Outpatient (CLI) | payer MEDICARE, BC ==
[2018-01-25 11:31] LABS: ABSOLUTE BASOPHILS # (AUTO) 0.1 10^3/uL (0.0-0.2); ABSOLUTE EOSINOPHILS # (AUTO) 0.2 10^3/uL (0.0-0.6); ABSOLUTE LYMPHOCYTES (AUTO) 2.8 10^3/uL (0.5-4.7); ABSOLUTE MONOCYTES (AUTO) 1.1 10^3/uL (0.1-1.4); ABSOLUTE NEUT (AUTO) 6.7 10^3/uL (1.7-8.2); BASOPHILS % (AUTO) 0.8 % (0-2); EOSINOPHILS % (AUTO) 1.8 % (0-6); HEMATOCRIT 47.4 % (36.0-47.0); LYMPHOCYTES % (AUTO) 25.7 % (13-45); MEAN CORPUSCULAR HEMOGLOBIN 30.2 pg (27.0-33.4); MEAN CORPUSCULAR HGB CONC 33.7 g/dL (32.0-36.0); MEAN CORPUSCULAR VOLUME 90 fl (80-97); MONOCYTES % (AUTO) 10.3 % (3-13); PLATELET COUNT 215 10^3/uL (150-450); RED BLOOD COUNT 5.29 10^6/uL (3.72-5.28); RED CELL DISTRIBUTION WIDTH 14.9 % (11.5-14.0); SEGMENTED NEUTROPHILS % (AUTO) 61.4 % (42-78); TOTAL CELLS COUNTED % (AUTO) 100 %; WHITE BLOOD COUNT 10.9 10^3/uL (4.0-10.5)
--- NOTE | 2018-01-25 11:44 | RADIOLOGY REPORT (SQ) ---
EXAM DESCRIPTION: CHEST PA/LATERAL COMPLETED DATE/TIME: 01/25/2018 11:15 am REASON FOR STUDY: PNEUMONIA DUE TO PSEUDOMONAS COMPARISON: CT chest 09/20/2016, 03/20/2017, 06/10/2017 Chest films 07/02/2016, 08/10/2017, 09/08/2017 EXAM PARAMETERS: NUMBER OF VIEWS: two views TECHNIQUE: Digital Frontal and Lateral radiographic views of the chest acquired. RADIATION DOSE: NA LIMITATIONS: none FINDINGS: LUNGS AND PLEURA: No opacities, masses or pneumothorax. No pleural effusion. MEDIASTINUM AND HILAR STRUCTURES: No masses or contour abnormalities. HEART AND VASCULAR STRUCTURES: Heart normal size. No evidence for failure. BONES: No acute findings. HARDWARE: Left-sided pacemaker. Clips right upper quadrant post cholecystectomy OTHER: No other significant finding. IMPRESSION: No focal consolidation. TECHNICAL DOCUMENTATION: JOB ID: [id number] [employer]- All Rights Reserved Reading location - IP/workstation name: [email or web address]
== END ==
LOC: OD 10:16
PROVIDERS: ATTEND Internal Medicine Pulmonary Disease
DX: J15.1 Pneumonia due to Pseudomonas (principal)
CPT/HCPCS: 36415; 71046; 85025

== ENCOUNTER → 2018-02-27 | Outpatient (CLI) | payer MEDICARE, BC ==
[2018-02-27 11:46] LABS: ANION GAP 13 (5-19); BLOOD UREA NITROGEN 14 mg/dL (7-20); CALCIUM 9.9 mg/dL (8.4-10.2); CARBON DIOXIDE 29 mmol/L (22-30); CHLORIDE 102 mmol/L (98-107); GLUCOSE 88 mg/dL (75-110); POTASSIUM 4.6 mmol/L (3.6-5.0); SODIUM 143.6 mmol/L (137-145)
== END ==
LOC: OD 09:55
PROVIDERS: ATTEND Internal Medicine Cardiovascular Disease
DX: R06.02 Shortness of breath (principal)
CPT/HCPCS: 36415; 80048; 83880

== ENCOUNTER → 2018-05-22 | Outpatient (CLI) | payer MEDICARE, BC ==
--- NOTE | 2018-05-22 16:04 | WOMENS IMAGING REPORT ---
EXAM DESCRIPTION: 3D SCREENING MAMMO BILAT COMPLETED DATE/TIME: 05/22/2018 1:11 pm REASON FOR STUDY: SCREENING MAMMO Z12.31 ENCNTR SCREEN MAMMOGRAM FOR MALIGNANT NEOPLASM OF ANATOLIY COMPARISON: Multiple since 2008 TECHNIQUE: Standard craniocaudal and mediolateral oblique views of each breast recorded using digita l acquisition and breast tomosynthesis. LIMITATIONS: Artifact from pacemaker battery pack over the left far upper outer quadrant on MLO view FINDINGS: Findings present which are benign by mammographic criteria. No suspicious masses, calcifi cations or architectural distortion. Pertinent benign findings: Benign bilateral breast parenchymal calcifications. Read with the assistance of CAD. .[facility] - R2 Cenova Version 1.3 .[facility] - R2 Cenova Version 1.3 .[facility] - R2 Cenova Version 2.4 .[facility] - R2 Cenova Version 2.4 .[facility] - R2 Chicken Hanger Version 9.2 Benign mammographic findings may include one or more of the following: Smooth masses, popcorn/rim/co arse calcifications, asymmetries, post-procedure changes, and lesions with long-standing stability. IMPRESSION: BENIGN MAMMOGRAPHIC FINDINGS. BIRADS 2 BREAST DENSITY: b. There are scattered areas of fibroglandular density. BIRAD: 2 BENIGN FINDING(S) RECOMMENDATION: RECOMMENDATION: ROUTINE SCREENING Please continue yearly bilateral screening tomosynthesis in May 2019 COMMENT: The patient has been notified of the results by letter per MQSA requirements. Additional no tification policies are in place for contacting patient with suspicious or incomplete findings. Quality ID #[id number]: The [employer] recommends an annual screening mammogram for women aged 40 years or over. This facility utilizes a reminder system to ensure that all patients receive reminder letters, and/or direct phone calls for appointments. This includes reminders for routine scr eening mammograms, diagnostic mammograms, or other Breast Imaging Interventions when appropriate. Th is patient will be placed in the appropriate reminder system. The [employer] (ACR) has developed recommendations for screening MRI of the breast s in certain patient populations, to be used in conjunction with mammography. Breast MRI surveillanc e may be appropriate for women with more than 20% lifetime risk of developing breast cancer as deter mined by genetic testing, significant family history of the disease, or history of mantle radiation f or Hodgkins Disease. ACR Practice Guidelines 2008. DBT Technology DBT is a type of tomographic mammography. With conventional mammography, overlapping breast tissue ma y make lesions difficult to detect, even with good compression. DBT uses an x-ray tube that rotates a round the breast, taking images at different angles. These images are then combined to create thin sl ices of the breast that the radiologist can view as a 3D reconstruction. The HoloContently unit can perform full-field digital mammograms (2D imaging); or DBT (3D imaging); or both, in a combination mode that quickly performs both the mammogram and the tomosynthesis scan while the breast is still compressed. PQRS 6045F: Fluoroscopic imaging is not utilized for breast tomosynthesis. TECHNICAL DOCUMENTATION: FINDING NUMBER: (1) ASSESSMENT: (1) JOB ID: [id number] [employer]- All Rights Reserved Reading location - IP/workstation name: [email or web address]
== END ==
LOC: WI 10:19
PROVIDERS: ATTEND Obstetrics & Gynecology
DX: Z12.31 Encounter for screening mammogram for malignant neoplasm of breast (principal)
CPT/HCPCS: 77063; 77067

== ENCOUNTER → 2019-04-05 | Outpatient (CLI) | payer MEDICARE, BC ==
[2019-04-05 17:03] LABS: APPEARANCE,URINE CLEAR; BILIRUBIN,URINE NEGATIVE (NEGATIVE); COLOR,URINE YELLOW; GLUCOSE, URINE NEGATIVE (NEGATIVE); KETONES,URINE NEGATIVE (NEGATIVE); LEUKOCYTE ESTERASE,URINE SMALL (NEGATIVE); NITRITE,URINE NEGATIVE (NEGATIVE); PROTEIN,URINE NEGATIVE (NEGATIVE); URINE SPECIFIC GRAVITY 1.011; UROBILINOGEN,URINE NEGATIVE mg/dL (<2.0)
== END ==
LOC: OD 16:22
PROVIDERS: ATTEND Internal Medicine Pulmonary Disease
DX: R30.0 Dysuria (principal)
CPT/HCPCS: 81001; 87086

== ENCOUNTER 2019-10-17 21:33 | Emergency (ER) | payer MEDICARE, BC ==
[2019-10-17] MEDS ORDERED: ONDANSETRON 4 MG TAB.RAPDIS PO ONE (21:54)
[2019-10-17] MEDS ORDERED: NORMAL SALINE 1000 ML 1,000 ML IV ONE (21:54)
[2019-10-17] MEDS ORDERED: IBUPROFEN 600 MG TABLET PO ONE (21:56)
--- NOTE | 2019-10-17 21:56 | ER Document Report ---
ED Medical Screen (RME) - General Chief Complaint: Shortness Of Breath Stated Complaint: SHORTNESS OF BREATH Time Seen by Provider: 10/17/19 21:53 Primary Care Provider: LADAN DYE MD [Primary Care Provider] - Follow up as needed TRAVEL OUTSIDE OF THE [place] IN LAST 30 DAYS: No - HPI Notes: 10/17/19 21:54 Patient is an 79-year-old female with a history of hypertension, permanent pacemaker, COPD chronic bronchitis and recurrent pneumonia and UTI who presents complaining of fever of 102 at home (took Tylenol 1900), dry cough, nausea that began today. She has been urinating normally and having normal bowel movements. No chest pain. I have treated and performed a rapid initial assessment of this patient. A comprehensive ED assessment and evaluation of the patient, analysis of test results and completion of medical decision making process will be conducted by additional ED providers. PHYSICAL EXAMINATION: GENERAL: Well-appearing, well-nourished and in no acute distress. A&Ox4. Answers questions appropriately. Lungs: Grossly CTAB, slight diminishment at the base bilaterally. No retractions Extremities: No edema - Related Data Allergies/Adverse Reactions: codeine [Codeine] Allergy (Verified 09/08/17 16:12) Vomiting Sulfa (Sulfonamide Antibiotics) Allergy (Verified 09/08/17 16:12) rash Past Medical History - Past Medical History Cardiac Medical History: Reports: Hx Coronary Artery Disease, Hx Hypertension, Hx Heart Murmur Denies: Hx Heart Attack Pulmonary Medical History: Reports: Hx Bronchitis, Hx Pneumonia Denies: Hx Asthma, Hx COPD, Hx Tuberculosis Neurological Medical History: Denies: Hx Cerebrovascular Accident, Hx Seizures Endocrine Medical History: Reports: Hx Hypothyroidism Renal/ Medical History: Reports: Hx Kidney Stones. Denies: Hx Peritoneal Dialysis GI Medical History: Reports: Hx Gastroesophageal Reflux Disease, Hx Hiatal Hernia - constricted esophageal hernia, Hx Liver Failure, Hx Ulcer Musculoskeltal Medical History: Reports Hx Arthritis - osteo Psychiatric Medical History: Reports: Hx Depression - situational Past Surgical History: Reports: Hx Cardiac Catheterization - stent, Hx Cardiac Surgery - pacemaker, Hx Cholecystectomy, Hx Hysterectomy, Hx Pacemaker - Immunizations Hx Diphtheria, Pertussis, Tetanus Vaccination: No Physical Exam - Vital signs Vitals: Temp Pulse Resp BP Pulse Ox 100.0 F 65 18 157/71 H 95 10/17/19 21:40 10/17/19 21:40 10/17/19 21:40 10/17/19 21:40 10/17/19 21:40 Course - Vital Signs Vital signs: Temp Pulse Resp BP Pulse Ox 100.0 F 65 18 157/71 H 95 10/17/19 21:40 10/17/19 21:40 10/17/19 21:40 10/17/19 21:40 10/17/19 21:40 Doctor's Discharge - Discharge Referrals: LADAN DYE MD [Primary Care Provider] - Follow up as needed
--- NOTE | 2019-10-17 22:38 | RADIOLOGY REPORT (SQ) ---
Chest 2 view on 10/17/2019 at 10:14 PM CLINICAL INDICATION: Cough, fever COMPARISON: 01/25/2018 FINDINGS: There is patchy opacity in the inferior right upper lobe consistent with pneumonia. Multilead left subclavian AICD device is noted in place. Vascular calcification is noted in the aorta. The lungs are otherwise clear. Cardiac, hilar and mediastinal contours are within normal limits. There is scoliosis of the spine. IMPRESSION: Findings consistent with right upper lobe pneumonia.
[2019-10-18 00:02] LABS: ABSOLUTE EOSINOPHILS # (AUTO) 0.1 10^3/uL (0.0-0.6); ABSOLUTE LYMPHOCYTES (AUTO) 1.4 10^3/uL (0.5-4.7); ABSOLUTE MONOCYTES (AUTO) 1.4 10^3/uL (0.1-1.4); ABSOLUTE NEUT (AUTO) 10.2 10^3/uL (1.7-8.2); APPEARANCE,URINE CLEAR; BASOPHILS % (AUTO) 0.3 % (0-2); BILIRUBIN,URINE NEGATIVE (NEGATIVE); COLOR,URINE STRAW; GLUCOSE, URINE NEGATIVE (NEGATIVE); HEMATOCRIT 43.8 % (36.0-47.0); HEMOGLOBIN 14.5 g/dL (12.0-15.5); KETONES,URINE NEGATIVE (NEGATIVE); LYMPHOCYTES % (AUTO) 10.3 % (13-45); MEAN CORPUSCULAR HEMOGLOBIN 31.2 pg (27.0-33.4); MEAN CORPUSCULAR HGB CONC 33.2 g/dL (32.0-36.0); MEAN CORPUSCULAR VOLUME 94 fl (80-97); MONOCYTES % (AUTO) 10.3 % (3-13); PLATELET COUNT 165 10^3/uL (150-450); PROTEIN,URINE 30 mg/dL (NEGATIVE); RED BLOOD COUNT 4.66 10^6/uL (3.72-5.28); RED CELL DISTRIBUTION WIDTH 13.6 % (11.5-14.0); SEGMENTED NEUTROPHILS % (AUTO) 78.1 % (42-78); TOTAL CELLS COUNTED % (AUTO) 100 %; URINE SPECIFIC GRAVITY 1.011; UROBILINOGEN,URINE NEGATIVE mg/dL (<2.0); WHITE BLOOD COUNT 13.1 10^3/uL (4.0-10.5)
[2019-10-18 00:13] LABS: ALBUMIN 4.5 g/dL (3.5-5.0); ALKALINE PHOSPHATASE 103 U/L (38-126); ANION GAP 13 (5-19); ASPARTATE AMINO TRANSFERASE 25 U/L (14-36); BILIRUBIN,DIRECT 0.2 mg/dL (0.0-0.4); BILIRUBIN,TOTAL 0.9 mg/dL (0.2-1.3); BLOOD UREA NITROGEN 13 mg/dL (7-20); CALCIUM 9.7 mg/dL (8.4-10.2); CARBON DIOXIDE 28 mmol/L (22-30); CHLORIDE 99 mmol/L (98-107); GLUCOSE 112 mg/dL (75-110); POTASSIUM 3.8 mmol/L (3.6-5.0); TOTAL PROTEIN 8.2 g/dL (6.3-8.2)
[2019-10-18 00:14] LABS: A TYPE INFLUENZA AG NEGATIVE (NEGATIVE); B INFLUENZA AG NEGATIVE (NEGATIVE)
[2019-10-18] MEDS ORDERED: AZITHROMYCIN 250 MG TABLET PO ONE (00:59)
--- NOTE | 2019-10-18 01:02 | ER Document Report ---
ED Respiratory Problem - General Chief Complaint: Shortness Of Breath Stated Complaint: SHORTNESS OF BREATH Time Seen by Provider: 10/17/19 21:53 Primary Care Provider: JUDI DOUGLAS PA-C [PHYSICIAN BAND TOP MAKER] - Follow up tomorrow LADAN DYE MD [ACTIVE STAFF] - Follow up as needed Mode of Arrival: Wheelchair Information source: Patient, Relative Notes: 79-year-old female presented to ED for complaint of shortness of breath cough congestion and nausea. She states she had a history of high blood pressure pneumonia chronic bronchitis and UTIs. She states she did have a fever of 102 at home took Tylenol. TRAVEL OUTSIDE OF THE [place] IN LAST 30 DAYS: No - HPI Patient complains to provider of: Cough, Short of breath Onset: Other Duration: Continuous - Several days Initiating Event: URI Severity: Moderate Pain Level: 3 Short of Breath: Mild Cough: Productive Sputum amount: Small Sputum color: Green, Yellow Sputum consistency: Thick Associated symptoms: Congestion, Cough, Fever, PND, Runny nose, Sinus pain/pressure, Short of breath Similar symptoms previously: Yes Recently seen / treated by doctor: No - Related Data Allergies/Adverse Reactions: codeine [Codeine] Allergy (Verified 09/08/17 16:12) Vomiting Sulfa (Sulfonamide Antibiotics) Allergy (Verified 09/08/17 16:12) rash Home Medications: sotolol, losartan, thyroid med, amilodipine,lasix-prn Past Medical History - General Information source: Patient - Social History Smoking Status: Never Smoker Frequency of alcohol use: None Drug Abuse: None Lives with: Family Family History: None, Hypertension Patient has suicidal ideation: No Patient has homicidal ideation: No - Past Medical History Cardiac Medical History: Reports: Hx Coronary Artery Disease, Hx Hypertension, Hx Heart Murmur Pulmonary Medical History: Reports: Hx Bronchitis, Hx Pneumonia EENT Medical History: Reports: None Neurological Medical History: Reports: None Endocrine Medical History: Reports: Hx Hypothyroidism Renal/ Medical History: Reports: Hx Kidney Stones Malignancy Medical History: Reports: None GI Medical History: Reports: Hx Gastroesophageal Reflux Disease, Hx Hiatal Hernia - constricted esophageal hernia, Hx Liver Failure, Hx Ulcer, Hx Colonoscopy, Hx Endoscopy Musculoskeletal Medical History: Reports Hx Arthritis - osteo Skin Medical History: Reports None Psychiatric Medical History: Reports: Hx Depression - situational Traumatic Medical History: Reports: None Infectious Medical History: Reports: None Past Surgical History: Reports: Hx Cardiac Catheterization - stent, Hx Cardiac Surgery - pacemaker, Hx Cholecystectomy, Hx Hysterectomy, Hx Pacemaker - Immunizations Hx Diphtheria, Pertussis, Tetanus Vaccination: No Hx Pneumococcal Vaccination: 10/17/06 Review of Systems - Review of Systems Constitutional: Fever, Recent illness EENT: No symptoms reported, Nose discharge, Sinus discharge Cardiovascular: No symptoms reported Respiratory: Cough, Hurts to breathe, Short of breath Gastrointestinal: No symptoms reported Genitourinary: No symptoms reported Female Genitourinary: No symptoms reported Musculoskeletal: No symptoms reported Skin: No symptoms reported Hematologic/Lymphatic: No symptoms reported Neurological/Psychological: No symptoms reported -: Yes All other systems reviewed and negative Physical Exam - Vital signs Vitals: Temp Pulse Resp BP Pulse Ox 100.0 F 65 18 157/71 H 95 10/17/19 21:40 10/17/19 21:40 10/17/19 21:40 10/17/19 21:40 10/17/19 21:40 Interpretation: Normal - General General appearance: Appears well, Alert - HEENT Head: Normocephalic, Atraumatic Eyes: Normal Pupils: PERRL Ears: Normal External canal: Normal Tympanic membrane: Normal Sinus: Normal Nasal: Purulent discharge, Swelling Mouth/Lips: Normal Mucous membranes: Normal Pharynx: Normal Neck: Normal - Respiratory Respiratory status: No respiratory distress Chest status: Nontender Breath sounds: Productive cough, Rhonchi Chest palpation: Normal - Cardiovascular Rhythm: Regular Heart sounds: Normal auscultation Murmur: No - Abdominal Inspection: Normal Distension: No distension Bowel sounds: Normal Tenderness: Nontender Organomegaly: No organomegaly - Back Back: Normal, Nontender - Extremities General upper extremity: Normal inspection, Nontender, Normal color, Normal ROM, Normal temperature General lower extremity: Normal inspection, Nontender, Normal color, Normal ROM, Normal temperature, Normal weight bearing. No: Evelio's sign - Neurological Neuro grossly intact: Yes Cognition: Normal Orientation: AAOx4 [place] Coma Scale Eye Opening: Spontaneous [place] Coma Scale Verbal: Oriented [place] Coma Scale Motor: Obeys Commands [place] Coma Scale Total: 15 Speech: Normal Motor strength normal: LUE, RUE, LLE, RLE Sensory: Normal - Psychological Associated symptoms: Normal affect, Normal mood - Skin Skin Temperature: Warm Skin Moisture: Dry Skin Color: Normal Course - Re-evaluation Re-evalutation: 10/18/19 08:32 Lab and x-ray results were discussed with Dr. Landrum. Patient was started on azithromycin and discharged home with prescription for azithromycin. Patient verbalized understanding and agreement to follow-up with primary care doctor tomorrow for his pneumonia due to her age and her history of pre-previous pneumonia bronchitis. Patient was discharged home. - Vital Signs Vital signs: Temp Pulse Resp BP Pulse Ox 98.9 F 80 24 H 118/57 L 95 10/18/19 01:53 10/18/19 01:53 10/18/19 01:53 10/18/19 01:53 10/18/19 01:53 - Laboratory Result Diagrams: 10/17/19 23:25 10/17/19 23:25 Laboratory results interpreted by me: 10/17/19 10/17/19 10/17/19 23:25 23:25 23:25 WBC 13.1 H Lymph % (Auto) 10.3 L Absolute Neuts (auto) 10.2 H Seg Neutrophils % 78.1 H Glucose 112 H Urine Protein 30 H Urine Blood MODERATE H Leukocyte Esterase Rfl SMALL H - Diagnostic Test Radiology reviewed: Image reviewed, Reports reviewed Discharge - Discharge Clinical Impression: Right upper lobe pneumonia Qualifiers: Pneumonia type: due to unspecified organism Qualified Code(s): J18.9 - Pneumonia, unspecified organism Condition: Stable Disposition: HOME, SELF-CARE Additional Instructions: PNEUMONIA: Your examination indicates that you have pneumonia. This is an infection of the lung tissue, usually caused by bacteria or a virus. Symptoms include cough, fever, shaking chills, chest pain, shortness of breath, and coughing up bloody sputum. Treatment for bacterial pneumonia includes rest, antibiotics for 10 to 14 days, increasing your clear liquid intake, a cool mist humidifier at your bedside, and fever medication. Often, a repeat chest X-ray is performed in a few weeks--even if you feel better--to ascertain whether the infection has completely resolved and no underlying lung problem is present. You should call the physician if you develop persistent vomiting, high fever that does not respond to fever medication, increasing shortness of breath, confusion, or lethargy. Also, failure to improve within two to three days is an indication for re-examination. AZITHROMYCIN: Azithromycin (Zithromax) is a broad spectrum antibiotic in the same class as erythromycin. It can treat a variety of bacterial infections, but is most frequently used for respiratory infections. Azithromycin is extremely long-lasting. It accumulates in body tissues and continues to kill bacteria for many days. In order to improve absorption, Azithromycin should be taken at least one hour before or two hours after a meal. It does not have the same strong tendency to upset the stomach as erythromycin and is usually very well tolerated. Patients who have had a rash or other true allergic reactions to erythromycin should not take this medication. Call if you develop gastrointestinal distress, severe diarrhea, rash, hives, itching, or shortness of breath. USE OF ACETAMINOPHEN (Tylenol): Acetaminophen may be taken for pain relief or fever control. It's much safer than aspirin, offering a wider range of "safe" dosages. It is safe during . Some brand names are Tylenol, Panadol, Datril, Anacin 3, Tempra, and Liquiprin. Acetaminophen can be repeated every four hours. The following are maximum recommended dosages: WEIGHT Dose Drops Elixir Chewable(80mg) (LBS.) drprs=droppers tsp=teaspoon 6 40 mg 0.4 ml (1/2) 6-11 80 mg 0.8 ml (full) tsp 1 tab 12-16 120 mg 1 1/2 drprs 3/4 tsp 1 1/2 tabs 17-23 160 mg 2 drprs 1 tsp 2 tabs 24-30 240 mg 3 drprs 1 1/2 tsp 3 tabs 30-35 320 mg 2 tsp 4 tabs 36-41 360 mg 2 1/4 tsp 4 1/2 tabs 42-47 400 mg 2 1/2 tsp 5 tabs 48-53 480 mg 3 tsp 6 tabs 54-59 520 mg 3 1/4 tsp 6 1/2 tabs 60-64 560 mg 3 1/2 tsp 7 tabs 65-70 600 mg 3 3/4 tsp 7 1/2 tabs 71-76 640 mg 4 tsp 8 tabs 77-82 720 mg 4 1/2 tsp 9 tabs 83-88 800 mg 5 tsp 10 tabs >89 pounds or adults 650 mg to 900 mg Acetaminophen can be repeated every four hours. Maximum dose not to exceed 4000 mg a day. These maximum recommended dosages are slightly higher than the dosages written on the product container, but these dosages are very safe and below the toxic dosage for acetaminophen. FOLLOW-UP CARE: If you have been referred to a physician for follow-up care, call the physician s office for an appointment as you were instructed or within the next two days. If you experience worsening or a significant change in your symptoms, notify the physician immediately or return to the Emergency Department at any time for re-evaluation. Prescriptions: Azithromycin 250 mg PO DAILY #4 tablet Referrals: LADAN DYE MD [ACTIVE STAFF] - Follow up as needed JUDI DOUGLAS PA-C [PHYSICIAN BAND TOP MAKER] - Follow up tomorrow
[2019-10-18 01:54] VITALS: BP 118/57
--- NOTE | 2019-10-18 07:40 | EKG REPORT ---
SEVERITY:- ABNORMAL ECG - ATRIAL-VENTRICULAR DUAL-PACED COMPLEXES : Confirmed by: Chi Hodgson MD 18-Oct-2019 07:39:28
== END 2019-10-18 01:54 | disposition home or self-care (01) ==
LOC: ER 21:33
DX: J18.9 Pneumonia, unspecified organism (principal); R06.02 Shortness of breath; R11.0 Nausea; I25.10 Atherosclerotic heart disease of native coronary artery without angina pectoris; I10 Essential (primary) hypertension; Z95.0 Presence of cardiac pacemaker; Z90.710 Acquired absence of both cervix and uterus; Z87.442 Personal history of urinary calculi; Z88.6 Allergy status to analgesic agent; Z88.2 Allergy status to sulfonamides
CPT/HCPCS: 99285; 96360; 36415; 87040; 87086; 83605; 83690; 85025; 80053; 81001; 87804; 71046; 93005; 93010; A9270 ×3; J7030; S0119

== ENCOUNTER → 2019-11-20 | Outpatient (CLI) | payer MEDICARE, BC ==
--- NOTE | 2019-11-20 14:11 | RADIOLOGY REPORT (SQ) ---
EXAM DESCRIPTION: CHEST PA/LATERAL COMPLETED DATE/TIME: 11/20/2019 1:07 pm REASON FOR STUDY: PNEUMONIA, UNSPECIFIED ORGANISM COMPARISON: 10/17/2019 EXAM PARAMETERS: NUMBER OF VIEWS: two views TECHNIQUE: Digital Frontal and Lateral radiographic views of the chest acquired. RADIATION DOSE: NA LIMITATIONS: none FINDINGS: LUNGS AND PLEURA: Subsegmental airspace disease right upper lobe abutting the fissure. No effusions. MEDIASTINUM AND HILAR STRUCTURES: No masses or contour abnormalities. HEART AND VASCULAR STRUCTURES: Heart normal size. No evidence for failure. BONES: No acute findings. HARDWARE: Stable position of defibrillator. OTHER: No other significant finding. IMPRESSION: Persistent versus recurrent right upper lobe pneumonia. Clinical correlation is needed. Consider noncontrast chest CT followup to exclude other postobstructive process. TECHNICAL DOCUMENTATION: JOB ID: [id number] [employer]- All Rights Reserved Reading location - IP/workstation name: [email or web address]
== END ==
LOC: OD 12:54
PROVIDERS: ATTEND Registered Nurse
DX: J18.9 Pneumonia, unspecified organism (principal)
CPT/HCPCS: 71046

== ENCOUNTER 2019-12-02 06:51 | Emergency (ER) | payer MEDICARE, BC ==
[2019-12-02 08:00] LABS: ALBUMIN 3.8 g/dL (3.5-5.0); ALKALINE PHOSPHATASE 87 U/L (38-126); ANION GAP 9 (5-19); ASPARTATE AMINO TRANSFERASE 25 U/L (14-36); BILIRUBIN,DIRECT 0.2 mg/dL (0.0-0.4); BLOOD UREA NITROGEN 11 mg/dL (7-20); CALCIUM 9.4 mg/dL (8.4-10.2); CARBON DIOXIDE 30 mmol/L (22-30); CHLORIDE 99 mmol/L (98-107); CREATINE KINASE 28 U/L (30-135); GLUCOSE 116 mg/dL (75-110); TOTAL PROTEIN 7.8 g/dL (6.3-8.2)
[2019-12-02 08:04] LABS: ABSOLUTE BASOPHILS # (AUTO) 0.1 10^3/uL (0.0-0.2); ABSOLUTE EOSINOPHILS # (AUTO) 0.1 10^3/uL (0.0-0.6); ABSOLUTE LYMPHOCYTES (AUTO) 1.5 10^3/uL (0.5-4.7); ABSOLUTE MONOCYTES (AUTO) 2.2 10^3/uL (0.1-1.4); ABSOLUTE NEUT (AUTO) 7.5 10^3/uL (1.7-8.2); BASOPHILS % (AUTO) 0.9 % (0-2); EOSINOPHILS % (AUTO) 0.7 % (0-6); HEMATOCRIT 41.7 % (36.0-47.0); HEMOGLOBIN 13.9 g/dL (12.0-15.5); LYMPHOCYTES % (AUTO) 12.8 % (13-45); MEAN CORPUSCULAR HEMOGLOBIN 31.1 pg (27.0-33.4); MEAN CORPUSCULAR HGB CONC 33.3 g/dL (32.0-36.0); MEAN CORPUSCULAR VOLUME 93 fl (80-97); MONOCYTES % (AUTO) 19.8 % (3-13); PLATELET COUNT 232 10^3/uL (150-450); RED BLOOD COUNT 4.46 10^6/uL (3.72-5.28); RED CELL DISTRIBUTION WIDTH 14.8 % (11.5-14.0); SEGMENTED NEUTROPHILS % (AUTO) 65.8 % (42-78); TOTAL CELLS COUNTED % (AUTO) 100 %; WHITE BLOOD COUNT 11.4 10^3/uL (4.0-10.5)
--- NOTE | 2019-12-02 08:31 | RADIOLOGY REPORT (SQ) ---
EXAM DESCRIPTION: CHEST 2 VIEWS COMPLETED DATE/TIME: 12/02/2019 8:05 am REASON FOR STUDY: Recent Pneumonia/Chest Pain COMPARISON: 11/20/2019 and 10/17/2019. EXAM PARAMETERS: NUMBER OF VIEWS: two views TECHNIQUE: Digital Frontal and Lateral radiographic views of the chest acquired. RADIATION DOSE: NA LIMITATIONS: none FINDINGS: LUNGS AND PLEURA: Persistent right upper lobe infiltrate. Left lung generally clear. MEDIASTINUM AND HILAR STRUCTURES: No masses or contour abnormalities. HEART AND VASCULAR STRUCTURES: Heart normal size. No evidence for failure. BONES: No acute findings. HARDWARE: Defibrillator. OTHER: No other significant finding. IMPRESSION: PERSISTENT RIGHT UPPER LOBE INFILTRATE. UNCHANGED SINCE 10/17/2019. TECHNICAL DOCUMENTATION: JOB ID: [id number] 2010 [employer]- All Rights Reserved Reading location - IP/workstation name: [email or web address]
[2019-12-02 08:53] LABS: CREATINE KINASE MB < 0.22 ng/mL (<4.55); TROPONIN I < 0.012 ng/mL
[2019-12-02 09:24] LABS: A TYPE INFLUENZA AG NEGATIVE (NEGATIVE); B INFLUENZA AG NEGATIVE (NEGATIVE)
[2019-12-02] MEDS ORDERED: HYDROMORPHONE HCL INJ/PF 2 MG/ML AMPULE IV ONE (09:30)
[2019-12-02] MEDS ORDERED: ONDANSETRON HCL INJ/PF 4 MG/2 ML SDV IV ONE (09:31)
[2019-12-02] MEDS ORDERED: KETOROLAC TROMETHAMINE INJ/PF 30 MG/1 ML SDV IV ONE (09:31)
--- NOTE | 2019-12-02 09:43 | EKG REPORT ---
SEVERITY:- ABNORMAL ECG - ATRIAL-VENTRICULAR DUAL-PACED RHYTHM : Confirmed by: Chi Hodgson MD 02-Dec-2019 09:43:03
--- NOTE | 2019-12-02 09:43 | ER Document Report ---
ED General - General Chief Complaint: Chest Pain Stated Complaint: SHORTNESS OF BREATH Time Seen by Provider: 12/02/19 07:41 Primary Care Provider: JUDI DOUGLAS PA-C [Primary Care Provider] - Follow up as needed Notes: 79-year-old woman presents to the emergency department with a complaint of pain involving the left chest, posterior upper back and neck. She states his symptoms were associated with fever and chills last night as well as prior history of pneumonia which was diagnosed in October. She says the pain is excruciating and was worsened over this morning. She states her temperature was 100.8 with chills. TRAVEL OUTSIDE OF THE [place] IN LAST 30 DAYS: No - Related Data Allergies/Adverse Reactions: codeine [Codeine] Allergy (Verified 09/08/17 16:12) Vomiting Sulfa (Sulfonamide Antibiotics) Allergy (Verified 09/08/17 16:12) rash Past Medical History - Social History Smoking Status: Unknown if Ever Smoked Family History: None, Hypertension Patient has suicidal ideation: No Patient has homicidal ideation: No - Past Medical History Cardiac Medical History: Reports: Hx Coronary Artery Disease, Hx Hypertension, Hx Heart Murmur Denies: Hx Heart Attack Pulmonary Medical History: Reports: Hx Bronchitis, Hx Pneumonia Denies: Hx Asthma, Hx COPD, Hx Tuberculosis Neurological Medical History: Denies: Hx Cerebrovascular Accident, Hx Seizures Endocrine Medical History: Reports: Hx Hypothyroidism Renal/ Medical History: Reports: Hx Kidney Stones. Denies: Hx Peritoneal Dialysis GI Medical History: Reports: Hx Gastroesophageal Reflux Disease, Hx Hiatal Hernia - constricted esophageal hernia, Hx Liver Failure, Hx Ulcer, Hx Colonoscopy, Hx Endoscopy Musculoskeletal Medical History: Reports Hx Arthritis - osteo Psychiatric Medical History: Reports: Hx Depression - situational Past Surgical History: Reports: Hx Cardiac Catheterization - stent, Hx Cardiac Surgery - pacemaker, Hx Cholecystectomy, Hx Hysterectomy, Hx Pacemaker - Immunizations Hx Diphtheria, Pertussis, Tetanus Vaccination: No Hx Pneumococcal Vaccination: 10/17/06 Review of Systems - Review of Systems Notes: Constitutional: + Fever. HENT: Negative for sore throat. Eyes: Negative for visual changes. Cardiovascular: + Chest wall pain, no exertional chest pain. Respiratory: + Shortness of breath. Gastrointestinal: Negative for abdominal pain, vomiting or diarrhea. Genitourinary: Negative for dysuria. Musculoskeletal: + Upper back pain, + neck pain. Skin: Negative for rash. Neurological: Negative for headaches, weakness or numbness. 10 point ROS negative except as marked above and in HPI. Physical Exam - Vital signs Vitals: Temp Pulse Resp BP Pulse Ox 98.1 F 84 22 H 105/51 L 96 12/02/19 06:57 12/02/19 06:57 12/02/19 06:57 12/02/19 06:57 12/02/19 06:57 - Notes Notes: PHYSICAL EXAMINATION: Physical Exam: General: Frail elderly woman in moderate distress secondary to pain HEENT: NC/AT, pupils equal round and reactive to light, MM moist,nares clear, Neck: + Tenderness in the paraspinous muscle group and upper trapezius region left greater than right supple, no adenopathy, no masses. Lungs: clear, no wheezing, no rales no rhonchi + chest wall tenderness left side to light touch. CVS: Regular rate and rhythm no murmur gallop or rub Abdomen: Soft active nontender, no masses, no hepatosplenomegaly Ext: No edema clubbing or cyanosis. Back: Tenderness around the left scapular region with palpation and movement Neuro: Alert and responsive, moving all 4 extremities on command, cranial nerves intact. Skin: Intact no open lesions, no rash PSYCH: Normal mood, normal affect. Course - Vital Signs Vital signs: Temp Pulse Resp BP Pulse Ox 98.1 F 84 18 105/51 L 91 L 12/02/19 06:57 12/02/19 06:57 12/02/19 08:02 12/02/19 06:57 12/02/19 08:02 - Laboratory Result Diagrams: 12/02/19 07:30 12/02/19 07:30 Laboratory results interpreted by me: 12/02/19 12/02/19 12/02/19 07:30 07:30 07:30 WBC 11.4 H RDW 14.8 H Lymph % (Auto) 12.8 L [place] % (Auto) 19.8 H Absolute Monos (auto) 2.2 H Glucose 116 H Creatine Kinase 28 L C-Reactive Protein NT-Pro-B Natriuret Pep 1890 H 12/02/19 07:30 WBC RDW Lymph % (Auto) [place] % (Auto) Absolute Monos (auto) Glucose Creatine Kinase C-Reactive Protein 33.4 H NT-Pro-B Natriuret Pep 12/02/19 13:16 I have reviewed laboratory data and used this information for the treatment decisions regarding the patient. - Diagnostic Test Radiology reviewed: Image reviewed - Chest x-ray 1 view: Right-sided density compatible with prior chest x-ray? Residual pneumonia. CTA chest: No pulmonary embolus, right sided area of density? Residual infection, atelectasis, agree with pulmonology follow-up., Reports reviewed - EKG Interpretation by Me Rhythm: Other - Atrial ventricular dual paced rhythm, rate 82. Discharge - Discharge Clinical Impression: Left-sided chest wall pain, Neck pain Chronic pain Qualifiers: Chronic pain type: chronic pain syndrome Qualified Code(s): G89.4 - Chronic pain syndrome Congestive heart failure Qualifiers: Heart failure type: systolic Heart failure chronicity: chronic Qualified C ode(s): I50.22 - Chronic systolic (congestive) heart failure Condition: Good Disposition: HOME, SELF-CARE Instructions: Oral Narcotic Medication ([facility]), Anti-Inflammatory Medication ([facility]) Additional Instructions: Please use your pain medications in conjunction with the Medrol Dosepak. Follow-up with your primary physician if the pain is continuing to be out of control A follow-up chest x-ray should be performed in 3 to 4 weeks. If there is no improvement follow-up with the fiber technologist should be recommended. If you continued difficulties or new problems you may return to the emergency department for further evaluation and treatment. Prescriptions: Methylprednisolone [Medrol Dosepack (4 mg/Tab) 21 Tab/Dosepak] 21 tab PO ASDIR #1 dspk Referrals: JUDI DOUGLAS PA-C [Primary Care Provider] - Follow up as needed
--- NOTE | 2019-12-02 11:52 | RADIOLOGY REPORT (SQ) ---
EXAM DESCRIPTION: CTA CHEST COMPLETED DATE/TIME: 12/02/2019 11:33 am REASON FOR STUDY: Chest pain, shortness of breath COMPARISON: CT chest dated 06/10/2017. Chest x-rays dated 12/02/2019, 11/20/2019, and 10/17/2019. TECHNIQUE: CT scan of the chest performed using helical scanning technique with dynamic intravenous contrast injection. Images reviewed with lung, soft tissue and bone windows. Reconstructed coronal and sagittal MPR images reviewed. Additional 3 dimensional post-processing performed to develop Maximal Intensity Projection images (CO P). All images stored on PACS. All CT scanners at this facility use dose modulation, iterative reconstruction, and/or weight based d osing when appropriate to reduce radiation dose to as low as reasonably achievable (ALARA). [facility]: Dose Right [facility]: CareDose [facility]: Dose Right [facility]: Teradose 4D [facility]: [email or web address] CONTRAST TYPE AND DOSE: contrast/concentration: Isovue 350.00 mg/ml; Total Contrast Delivered: 53.0 ml; Total Saline Delivered: 53.8 ml Contrast bolus optimized for the pulmonary arteries. Not diagnostic for the aorta. RENAL FUNCTION: BUN 11 creatinine 0.71. RADIATION DOSE: CT Rad equipment meets quality standard of care and radiation dose reduction techniq ues were employed. CTDIvol: 9.9 - 14.3 mGy. DLP: 517 mGy-cm. . LIMITATIONS: None. FINDINGS: LUNGS AND PLEURA: Chronic interstitial changes. Streaky airspace disease in the posterior right upper lobe with a few air bronchograms. No pleural effusions or pleural calcifications. AORTA AND GREAT VESSELS: No aneurysm. Contrast bolus not optimized for the aorta. HEART: No pericardial effusion. No significant coronary artery calcifications. PULMONARY ARTERIES: No emboli visualized in the main pulmonary arteries or the segmental branches. HILAR AND MEDIASTINAL STRUCTURES: No identified masses or abnormal nodes. HARDWARE: Defibrillator. UPPER ABDOMEN: No significant findings. Limited exam. THYROID AND OTHER SOFT TISSUES: No masses. No adenopathy. BONES: No acute or significant finding. 3D MIPS: Confirm above findings. OTHER: No other significant finding. IMPRESSION: 1. NORMAL CTA OF THE CHEST. NO PULMONARY EMBOLI. 2. STREAKY AIRSPACE DISEASE IN THE POSTERIOR RIGHT UPPER LOBE WITH A FEW AIR BRONCHOGRAMS. THIS APPE ARS TO BE PERSISTENT BASED ON PRIOR CHEST X-RAYS. IF THIS AREA DOES NOT CLEAR, DIAGNOSTIC BRONCHOSCO PY MAY BE NECESSARY. COMMENT: Quality ID # [id number]: Final reports with documentation of one or more dose reduction techniques (e.g., Automated exposure control, adjustment of the mA and/or kV according to patient size, use of iterative reconstruction technique) TECHNICAL DOCUMENTATION: JOB ID: [id number] 2010 [employer]- All Rights Reserved Reading location - IP/workstation name: [email or web address]
[2019-12-02] MEDS ORDERED: DEXAMETHASONE SOD PHOS INJ 10 MG/1 ML VIAL IV ONE (12:11)
[2019-12-02] MEDS ORDERED: HYDROCODONE/ACETAMINOPHEN 5-325 MG TABLET PO ONE (13:13)
[2019-12-02 14:09] VITALS: BP 119/70
== END 2019-12-02 14:08 | disposition home or self-care (01) ==
LOC: ER 06:51
DX: I50.22 Chronic systolic (congestive) heart failure (principal); G89.4 Chronic pain syndrome; R07.89 Other chest pain; M54.2 Cervicalgia; R06.02 Shortness of breath; M54.6 Pain in thoracic spine; R50.9 Fever, unspecified; Z88.2 Allergy status to sulfonamides; Z88.8 Allergy status to other drugs, medicaments and biological substances; I25.10 Atherosclerotic heart disease of native coronary artery without angina pectoris
CPT/HCPCS: 93005; 99285; 96374; 96375; 36415; 82553; 82550; 85025; 85652; 86140; 80053; 84484; 87804; 83880; 71046; 71275; 93010; J1885; J1170; J2405; J1100; A9270

== ENCOUNTER 2019-12-17 13:19 | Emergency (ER) | payer MEDICARE, BC ==
--- NOTE | 2019-12-17 14:19 | ER Document Report ---
ED Medical Screen (RME) - General Chief Complaint: Flank Pain Stated Complaint: BODY PAIN Time Seen by Provider: 12/17/19 14:11 Primary Care Provider: JUDI DOUGLAS PA-C [Primary Care Provider] - Follow up as needed Notes: Patient is a 79-year-old female who presents the emergency department with a chief complaint of generalized body pain. Patient states that she was diagnosed with pneumonia and her last dose of Levaquin was yesterday. Patient is currently on tobramycin. Patient was also recently diagnosed with C. difficile. She was treated with Flagyl. Exam: Clear breath sounds throughout. Soft, nontender abdomen. I have greeted and performed a rapid initial assessment of this patient. A comprehensive ED assessment and evaluation of the patient, analysis of test results and completion of medical decision making process will be conducted by an additional ED providers. TRAVEL OUTSIDE OF THE [place] IN LAST 30 DAYS: No - Related Data Allergies/Adverse Reactions: Sulfa (Sulfonamide Antibiotics) Allergy (Verified 12/17/19 14:18) rash codeine [Codeine] Adverse Reaction (Verified 12/17/19 14:18) Vomiting Past Medical History - Social History Frequency of alcohol use: None Drug Abuse: None - Past Medical History Cardiac Medical History: Reports: Hx Coronary Artery Disease, Hx Hypertension, Hx Heart Murmur Denies: Hx Heart Attack Pulmonary Medical History: Reports: Hx Bronchitis, Hx Pneumonia Denies: Hx Asthma, Hx COPD, Hx Tuberculosis Neurological Medical History: Denies: Hx Cerebrovascular Accident, Hx Seizures Endocrine Medical History: Reports: Hx Hypothyroidism Renal/ Medical History: Reports: Hx Kidney Stones. Denies: Hx Peritoneal Dialysis GI Medical History: Reports: Hx Gastroesophageal Reflux Disease, Hx Hiatal Hernia - constricted esophageal hernia, Hx Liver Failure, Hx Ulcer, Hx Colonoscopy, Hx Endoscopy Musculoskeltal Medical History: Reports Hx Arthritis - osteo Psychiatric Medical History: Reports: Hx Depression - situational Past Surgical History: Reports: Hx Cardiac Catheterization - stent, Hx Cardiac Surgery - pacemaker, Hx Cholecystectomy, Hx Hysterectomy, Hx Pacemaker - Immunizations Hx Diphtheria, Pertussis, Tetanus Vaccination: No Physical Exam - Vital signs Vitals: Temp Pulse Resp BP Pulse Ox 98.9 F 82 20 124/67 97 12/17/19 13:37 12/17/19 13:37 12/17/19 13:37 12/17/19 13:37 12/17/19 13:37 Course - Vital Signs Vital signs: Temp Pulse Resp BP Pulse Ox 98.9 F 82 20 124/67 97 12/17/19 13:37 12/17/19 13:37 12/17/19 13:37 12/17/19 13:37 12/17/19 13:37 Doctor's Discharge - Discharge Referrals: JUDI DOUGLAS PA-C [Primary Care Provider] - Follow up as needed
[2019-12-17 14:55] LABS: ABSOLUTE BASOPHILS # (AUTO) 0.1 10^3/uL (0.0-0.2); ABSOLUTE EOSINOPHILS # (AUTO) 0.2 10^3/uL (0.0-0.6); ABSOLUTE LYMPHOCYTES (AUTO) 1.6 10^3/uL (0.5-4.7); ABSOLUTE MONOCYTES (AUTO) 1.5 10^3/uL (0.1-1.4); ABSOLUTE NEUT (AUTO) 6.3 10^3/uL (1.7-8.2); BASOPHILS % (AUTO) 0.5 % (0-2); EOSINOPHILS % (AUTO) 1.9 % (0-6); HEMATOCRIT 41.9 % (36.0-47.0); HEMOGLOBIN 14.2 g/dL (12.0-15.5); LYMPHOCYTES % (AUTO) 16.6 % (13-45); MEAN CORPUSCULAR HEMOGLOBIN 31.6 pg (27.0-33.4); MEAN CORPUSCULAR VOLUME 93 fl (80-97); MONOCYTES % (AUTO) 15.6 % (3-13); PLATELET COUNT 132 10^3/uL (150-450); RED BLOOD COUNT 4.51 10^6/uL (3.72-5.28); RED CELL DISTRIBUTION WIDTH 14.8 % (11.5-14.0); SEGMENTED NEUTROPHILS % (AUTO) 65.4 % (42-78); TOTAL CELLS COUNTED % (AUTO) 100 %; WHITE BLOOD COUNT 9.7 10^3/uL (4.0-10.5)
--- NOTE | 2019-12-17 15:05 | RADIOLOGY REPORT (SQ) ---
EXAM DESCRIPTION: CHEST SINGLE VIEW COMPLETED DATE/TIME: 12/17/2019 2:53 pm REASON FOR STUDY: cough COMPARISON: PA and lateral views of the chest from 12/02/2019 EXAM PARAMETERS: NUMBER OF VIEWS: One view. TECHNIQUE: An AP view of the chest was obtained. RADIATION DOSE: NA LIMITATIONS: None. FINDINGS: LUNGS AND PLEURA: The opacities in the right upper lobe described on the prior radiograph are no longer present. The interstitial opacities in the inferior aspect of the left hemithorax are unchanged. There is no acute consolidation, sizeable pleural effusion or pneumothorax. MEDIASTINUM AND HILAR STRUCTURES: No mediastinal or hilar contour abnormality. HEART AND VASCULAR STRUCTURES: Stable enlarged cardiac silhouette. BONES: No acute findings. HARDWARE: Left subclavian vein approach ICD and coronary stents. OTHER: No other finding. IMPRESSION: No acute cardiopulmonary process. TECHNICAL DOCUMENTATION: JOB ID: [id number] 2010 [employer]- All Rights Reserved Reading location - IP/workstation name: [email or web address]
[2019-12-17 15:11] LABS: A TYPE INFLUENZA AG NEGATIVE (NEGATIVE)
[2019-12-17 15:12] LABS: B INFLUENZA AG NEGATIVE (NEGATIVE)
[2019-12-17 15:13] LABS: ALKALINE PHOSPHATASE 80 U/L (38-126); ANION GAP 8 (5-19); ASPARTATE AMINO TRANSFERASE 30 U/L (14-36); BILIRUBIN,DIRECT 0.2 mg/dL (0.0-0.4); BILIRUBIN,TOTAL 0.6 mg/dL (0.2-1.3); BLOOD UREA NITROGEN 9 mg/dL (7-20); CALCIUM 9.3 mg/dL (8.4-10.2); CARBON DIOXIDE 32 mmol/L (22-30); CHLORIDE 100 mmol/L (98-107); GLUCOSE 76 mg/dL (75-110); TOTAL PROTEIN 7.5 g/dL (6.3-8.2)
[2019-12-17] MEDS ORDERED: ONDANSETRON 4 MG TAB.RAPDIS PO ONE (15:54)
[2019-12-17] MEDS ORDERED: KETOROLAC TROMETHAMINE INJ/PF 30 MG/1 ML SDV IV ONE (15:54)
[2019-12-17] MEDS ORDERED: NORMAL SALINE 1000 ML 1,000 ML IV ONE (15:54)
[2019-12-17 16:57] LABS: APPEARANCE,URINE CLEAR; BILIRUBIN,URINE NEGATIVE (NEGATIVE); COLOR,URINE STRAW; GLUCOSE, URINE NEGATIVE (NEGATIVE); KETONES,URINE NEGATIVE (NEGATIVE); LEUKOCYTE ESTERASE,URINE NEGATIVE (NEGATIVE); NITRITE,URINE NEGATIVE (NEGATIVE); PROTEIN,URINE NEGATIVE (NEGATIVE); URINE SPECIFIC GRAVITY 1.008; UROBILINOGEN,URINE NEGATIVE mg/dL (<2.0)
--- NOTE | 2019-12-17 17:52 | RADIOLOGY REPORT (SQ) ---
EXAM DESCRIPTION: CT ABD/PELVIS NO ORAL OR IV COMPLETED DATE/TIME: 12/17/2019 5:23 pm REASON FOR STUDY: right flank pain COMPARISON: 01/11/2014 TECHNIQUE: CT scan of the abdomen and pelvis performed without intravenous contrast. Oral contrast was administered. Images reviewed with lung, soft tissue, and bone windows. Reconstructed coronal and sagittal MPR images reviewed. All images stored on PACS. All CT scanners at this facility use dose modulation, iterative reconstruction, and/or weight based d osing when appropriate to reduce radiation dose to as low as reasonably achievable (ALARA). [facility]: Dose Right [facility]: CareDose [facility]: Dose Right [facility]: Teradose 4D [facility]: [employer] RADIATION DOSE: CT Rad equipment meets quality standard of care and radiation dose reduction techniq ues were employed. CTDIvol: 5.6 mGy. DLP: 302 mGy-cm.mGy. LIMITATIONS: None. FINDINGS: LOWER CHEST: No significant findings. No nodules or infiltrates. NON-CONTRASTED LIVER, SPLEEN, ADRENALS: Evaluation limited by lack of IV contrast. No identified sign ificant masses. PANCREAS: No masses. No peripancreatic inflammatory changes. GALLBLADDER: Surgically absent. RIGHT KIDNEY AND URETER: No suspicious masses. Assessment limited by lack of IV contrast. No signif icant calcifications. No hydronephrosis or hydroureter. LEFT KIDNEY AND URETER: No suspicious masses. Assessment limited by lack of IV contrast. No signifi cant calcifications. No hydronephrosis or hydroureter. AORTA AND RETROPERITONEUM: No aneurysm. No retroperitoneal masses or adenopathy. BOWEL AND PERITONEAL CAVITY: No obvious mass or inflammatory changes. No free fluid. The cecum lies transversely across the pelvis just above the urinary bladder. APPENDIX: Not identified. PELVIS, BLADDER, AND ABDOMINAL WALL:No abnormal masses. No free fluid. Bladder normal. BONES: No significant findings. OTHER: No other significant finding. IMPRESSION: NO SIGNIFICANT OR ACUTE PROCESS IN THE ABDOMEN OR PELVIS. COMMENT: Quality ID # [id number]: Final reports with documentation of one or more dose reduction techniques (e.g., Automated exposure control, adjustment of the mA and/or kV according to patient size, use of iterative reconstruction technique) TECHNICAL DOCUMENTATION: JOB ID: [id number] 2010 [employer]- All Rights Reserved Reading location - IP/workstation name: [email or web address]
[2019-12-17 19:29] VITALS: BP 136/70
--- NOTE | 2019-12-17 19:38 | ER Document Report ---
ED General - General Chief Complaint: Flank Pain Stated Complaint: BODY PAIN Time Seen by Provider: 12/17/19 14:11 Primary Care Provider: JUDI DOUGLAS PA-C [Primary Care Provider] - Follow up as needed Information source: Patient TRAVEL OUTSIDE OF THE [place] IN LAST 30 DAYS: No - HPI Notes: Patient arrives complaining of severe diffuse body aches. She states all of her joints hurt. This is exacerbated by movement and better with rest. This pain does radiate throughout her body. She states she has had it for several days. She also complains of right flank pain and states it hurts to lay on the right side. She states she is also had some diarrhea and has had several episodes of C. difficile in the past. However she states that she was recently tested and was negative for C. difficile. She states she just finished Levaquin yesterday for pneumonia and feels like the joint pain started after starting Levaquin. She is not had vomiting. She describes the pain as an aching sensation. She has not appreciated any swelling of any joints. No rashes other than she feels that her lips are dry. - Related Data Allergies/Adverse Reactions: Sulfa (Sulfonamide Antibiotics) Allergy (Verified 12/17/19 14:18) rash codeine [Codeine] Adverse Reaction (Verified 12/17/19 14:18) Vomiting Past Medical History - General Information source: Patient, Relative - Social History Smoking Status: Never Smoker Frequency of alcohol use: None Drug Abuse: None Family History: None, Hypertension Patient has suicidal ideation: No Patient has homicidal ideation: No - Past Medical History Cardiac Medical History: Reports: Hx Coronary Artery Disease, Hx Hypertension, Hx Heart Murmur Denies: Hx Heart Attack Pulmonary Medical History: Reports: Hx Bronchitis, Hx Pneumonia Denies: Hx Asthma, Hx COPD, Hx Tuberculosis Neurological Medical History: Denies: Hx Cerebrovascular Accident, Hx Seizures Endocrine Medical History: Reports: Hx Hypothyroidism Renal/ Medical History: Reports: Hx Kidney Stones. Denies: Hx Peritoneal Dialysis GI Medical History: Reports: Hx Gastroesophageal Reflux Disease, Hx Hiatal Hernia - constricted esophageal hernia, Hx Liver Failure, Hx Ulcer, Hx Colonoscopy, Hx Endoscopy Musculoskeletal Medical History: Reports Hx Arthritis - osteo Psychiatric Medical History: Reports: Hx Depression - situational Past Surgical History: Reports: Hx Cardiac Catheterization - stent, Hx Cardiac Surgery - pacemaker, Hx Cholecystectomy, Hx Hysterectomy, Hx Pacemaker - Immunizations Hx Diphtheria, Pertussis, Tetanus Vaccination: No Hx Pneumococcal Vaccination: 10/17/06 Review of Systems - Review of Systems Constitutional: Malaise, Weakness Cardiovascular: denies: Chest pain, Palpitations Respiratory: Cough. denies: Short of breath -: Yes All other systems reviewed and negative Physical Exam - Vital signs Vitals: Temp Pulse Resp BP Pulse Ox 98.9 F 82 20 124/67 97 12/17/19 13:37 12/17/19 13:37 12/17/19 13:37 12/17/19 13:37 12/17/19 13:37 Interpretation: Normal - General General appearance: Appears well, Alert In distress: None - HEENT Head: Normocephalic, Atraumatic Eyes: Normal Pupils: PERRL - Respiratory Respiratory status: No respiratory distress Chest status: Nontender Breath sounds: Normal Chest palpation: Normal - Cardiovascular Rhythm: Regular Heart sounds: Normal auscultation Murmur: No - Abdominal Inspection: Normal Distension: No distension Bowel sounds: Normal Tenderness: Nontender Organomegaly: No organomegaly - Back Back: Normal, Nontender - Extremities General upper extremity: Normal inspection, Nontender, Normal color, Normal temperature General lower extremity: Normal inspection, Nontender, Normal color, Normal temperature. No: Evelio's sign - Neurological Neuro grossly intact: Yes Cognition: Normal Orientation: AAOx4 [place] Coma Scale Eye Opening: Spontaneous Reading Coma Scale Verbal: Oriented [place] Coma Scale Motor: Obeys Commands Reading Coma Scale Total: 15 Speech: Normal Motor strength normal: LUE, RUE, LLE, RLE Sensory: Normal - Psychological Associated symptoms: Normal affect, Normal mood - Skin Skin Temperature: Warm Skin Moisture: Dry Skin Color: Normal Course - Re-evaluation Re-evalutation: 12/17/19 19:35 Patient comes in with diffuse body aches. And some right flank pain. Patient's chest x-ray shows no evidence of pneumonia or other significant abnormality. Patient's abdominal CT scan shows no acute abnormality and no evidence of colitis. Patient's abdominal exam is soft and nonsurgical. Her vital signs are all normal. Patient's laboratories are also unremarkable. At this time I am unable to find a cause for patient's complaints. Possibly this is an exacerbation of her fibromyalgia. Possibly she has picked up a viral syndrome. Possibly this is a reaction to Levaquin although I would expect that to be more of a focal tendinitis than a diffuse tendinitis. Patient states she had this once before and steroids made a significant difference in her pain. 12/17/19 19:37 - Vital Signs Vital signs: Temp Pulse Resp BP Pulse Ox 98.9 F 82 14 136/70 H 97 12/17/19 13:37 12/17/19 13:37 12/17/19 19:01 12/17/19 19:00 12/17/19 19:01 - Laboratory Result Diagrams: 12/17/19 14:35 12/17/19 14:35 Laboratory results interpreted by me: 12/17/19 12/17/19 12/17/19 14:35 14:35 16:37 RDW 14.8 H Plt Count 132 L [place] % (Auto) 15.6 H Absolute Monos (auto) 1.5 H Carbon Dioxide 32 H Urine Blood SMALL H - Diagnostic Test Radiology reviewed: Image reviewed, Reports reviewed - EKG Interpretation by Me Rate: Normal - 83 Rhythm: Other - paced [place]/QRS: IVCD Discharge - Discharge Clinical Impression: Myalgia and myositis, unspecified Arthralgia Qualifiers: Joint pain location: unspecified Qualified Code(s): M25.50 - Pain in un specified joint Chronic pain Qualifiers: Chronic pain type: chronic pain syndrome Qualified Code(s): G89.4 - Chronic pain syndrome Condition: Stable Disposition: HOME, SELF-CARE Instructions: Myalagia (Muscle Pain) ([facility]), Myofascial Pain ([facility]) Additional Instructions: Please follow-up with your primary care physician as soon as possible Prescriptions: Methylprednisolone [Medrol Dosepack (4 mg/Tab) 21 Tab/Dosepak] 4 mg PO ASDIR PRN #21 tab.ds.pk PRN Reason: Referrals: JUDI DOUGLAS PA-C [Primary Care Provider] - Follow up tomorrow
[2019-12-17] MEDS ORDERED: MORPHINE SULFATE 10 MG/ML INJ IV ONE (19:41)
--- NOTE | 2019-12-17 20:10 | EKG REPORT ---
SEVERITY:- ABNORMAL ECG - A-V DUAL-PACED RHYTHM WITH SOME INHIBITION : Confirmed by: Chi Hodgson MD 17-Dec-2019 20:09:17
[2019-12-17] MEDS ORDERED: METHYLPREDNISOLONE INJ 125 MG/2 ML SDV IV ONE (20:13)
== END 2019-12-17 20:10 | disposition home or self-care (01) ==
LOC: ER 13:19
DX: M79.10 Myalgia, unspecified site (principal); M60.9 Myositis, unspecified; G89.4 Chronic pain syndrome; M25.50 Pain in unspecified joint; R10.9 Unspecified abdominal pain; R53.1 Weakness; I25.10 Atherosclerotic heart disease of native coronary artery without angina pectoris; I10 Essential (primary) hypertension; Z88.2 Allergy status to sulfonamides; Z88.6 Allergy status to analgesic agent; Z87.442 Personal history of urinary calculi; Z90.710 Acquired absence of both cervix and uterus; Z90.49 Acquired absence of other specified parts of digestive tract; Z95.0 Presence of cardiac pacemaker
CPT/HCPCS: 93005; 99285; 96361; 96374; 96375; 36415; 85025; 80053; 81001; 84484; 87804; 71045; 74176; 93010; A9270; J2930; J1885; J2270; J7030; S0119

== ENCOUNTER → 2020-04-10 | Outpatient (CLI) | payer MEDICARE, BC ==
--- NOTE | 2020-04-10 12:56 | RADIOLOGY REPORT (SQ) ---
EXAM DESCRIPTION: CHEST PA/LATERAL IMAGES COMPLETED DATE/TIME: 04/10/2020 11:36 am REASON FOR STUDY: COUGH COMPARISON: 12/17/2019 EXAM PARAMETERS: NUMBER OF VIEWS: two views TECHNIQUE: Digital Frontal and Lateral radiographic views of the chest acquired. RADIATION DOSE: NA LIMITATIONS: none FINDINGS: LUNGS AND PLEURA: No opacities, masses or pneumothorax. No pleural effusion. MEDIASTINUM AND HILAR STRUCTURES: No masses or contour abnormalities. HEART AND VASCULAR STRUCTURES: Heart normal size. No evidence for failure. BONES: No acute findings. HARDWARE: Pacemaker/defibrillator. OTHER: No other significant finding. IMPRESSION: NO SIGNIFICANT RADIOGRAPHIC FINDING IN THE CHEST. TECHNICAL DOCUMENTATION: JOB ID: [id number] 2010 [employer]- All Rights Reserved Reading location - IP/workstation name: [email or web address]
== END ==
LOC: OD 11:24
PROVIDERS: ATTEND Registered Nurse
DX: R05 Cough (principal); A49.8 Other bacterial infections of unspecified site
CPT/HCPCS: 71046

== ENCOUNTER → 2020-09-09 | Outpatient (CLI) | payer MEDICARE, BC ==
[2020-09-09 10:26] VITALS: BP 145/78
--- NOTE | 2020-09-09 10:26 | ER [facility] ASSESSMENT REPORT ---
Intake - In the Last 14 days Have you traveled outside [place]?: No Have you been in close contact with someone CONFIRMED: Yes Worked in Healthcare?: No - Symptoms Subjective Fever([place] feverish): Yes Chills: No Muscule Aches: No Runny Nose: No Sore Throat: Yes Cough (New or worsening chronic cough): Yes Shortness of breath: No Nausea or Vomiting: Yes Headache: No Abdominal Pain: No Diarrhea(3 or more loose stools in last 24 hours): No - Do you have any of the following Chronic lung disease: Asthma or emphysema or COPD: Yes Chronic Lung Disease Comment: copd Cystic Fibrosis: No Diabetes: No High Blood Pressure: Yes Cardiovascular Disease: Yes Chronic Kidney Disease: No Chronic Liver Disease: No Chronic blood disorder like Sickle Cell Disease: No Weak immune system due to disease or medication: No Neurologic condition that limits movement: No Developmental delay - Moderate to Severe: No Recent (within past 2 weeks) or current : No Morbid Obesity (>100 pounds over ideal weight): No - Objective Temperature: 98.1 F Pulse Rate: 83 Respiratory Rate: 16 Blood Pressure: 145/78 O2 Sat by Pulse Oximetry: 93 Objective: Given above, testing performed: If Testing Performed: Test Specimen Type Sent to General - General Information source: Patient Notes: Patient presents to the [facility] for screening for the coronavirus. Patient has a history of COPD, hypertension and a previous pacemaker. Patient reports recent exposure to someone who did test positive. - Related Data Allergies/Adverse Reactions: Sulfa (Sulfonamide Antibiotics) Allergy (Verified 12/17/19 14:18) rash codeine [Codeine] Adverse Reaction (Verified 12/17/19 14:18) Vomiting Past Medical History - General Information source: Patient - Social History Smoking Status: Never Smoker Family History: None, Hypertension - Past Medical History Cardiac Medical History: Reports: Hx Coronary Artery Disease, Hx Hypertension, Hx Heart Murmur Denies: Hx Heart Attack Pulmonary Medical History: Reports: Hx Bronchitis, Hx Pneumonia Denies: Hx Asthma, Hx COPD, Hx Tuberculosis Neurological Medical History: Denies: Hx Cerebrovascular Accident, Hx Seizures Endocrine Medical History: Reports: Hx Hypothyroidism Renal/ Medical History: Reports: Hx Kidney Stones. Denies: Hx Peritoneal Dialysis GI Medical History: Reports: Hx Gastroesophageal Reflux Disease, Hx Hiatal Hernia - constricted esophageal hernia, Hx Liver Failure, Hx Ulcer, Hx Colonoscopy, Hx Endoscopy Musculoskeletal Medical History: Reports Hx Arthritis - osteo Psychiatric Medical History: Reports: Hx Depression - situational Past Surgical History: Reports: Hx Cardiac Catheterization - stent, Hx Cardiac Surgery - pacemaker, Hx Cholecystectomy, Hx Hysterectomy, Hx Pacemaker Physical Exam - Notes Notes: The patient was evaluated during the global Covid 19 pandemic, and that diagnosis was suspected/considered upon their initial presentation. Their evaluation, treatment and testing was consistent with current guidelines for patients who present with complaints or symptoms that may be related to Covid 19. Full physical exam could not be performed due to covid 19 isolation protocols. Constitutional: Nontoxic appearance, no acute distress Eyes: Nonicteric, extraocular movements intact, sclera clear ENT: Posterior pharynx clear without exudates cardiovascular: Heart rate and rhythm regular no JVD Respiratory: Breath sounds clear bilaterally, nonlabored breathing, no use of accessory muscles, no tachypnea Gastrointestinal: Abdomen not distended Muculoskeletal: Moves all extremities well, normal gait Skin: Normal color Neuro: Awake alert oriented, normal speech Psych: Normal mood and affect Diagnostic Results Laboratory Results: Patient presents with upper respiratory symptoms worrisome for possible Covid 19. Patient does not have emergency worrying symptoms such as difficulty breathing, shortness of breath, chest pain, pressure, confusion or cyanosis. Patient appears suitable for discharge as vital signs are stable and patient is nontoxic in appearance. Good return precautions have been discussed with patient, patient verbalized understanding and is agreeable with discharge plan of care at this time. Patient Education/Counseling Counseling/Education: Patient was provided with discharge information including: As a person under investigation for Covid 19, the [place] department of Health and Human Services, division of public health advises you to adhere to the following guidance until your test results are reported to you. If your test result is positive, you will receive additional information from your provider and your local health department at that time. Remain at home until you are cleared by the health provider or public health authorities. Keep a log of visitors to your home, notify any visitors to your home of your isolation status. If you plan to move to a new address or leave the county, notify the local health department in your County. Call your doctor or seek care if you have an urgent medical need. Before seeking medical care, call ahead to get instructions from the provider before arriving at the medical office clinic or hospital. Notify them that you are being tested for the virus that causes Covid 19 so that arrangements can be made, as necessary, to prevent transmission to others in the healthcare setting. Next, notify the local health department in your county. If a medical emergency arises and you need to call 911, inform the first responders that you are being tested for the virus that causes Covid 19. Next, notify the local health department in your county. [facility] Discharge - Discharge Clinical Impression: Encounter for screening laboratory testing for COVID-19 virus Condition: Stable Disposition: Home; Selfcare
[2020-09-09 12:22] LABS: A TYPE INFLUENZA AG NEGATIVE (NEGATIVE); B INFLUENZA AG NEGATIVE (NEGATIVE)
== END ==
LOC: RDC 09:34
PROVIDERS: ATTEND Nurse Practitioner Family
DX: U07.1 COVID-19 (principal)
CPT/HCPCS: 87070; 87880; 87804; 99201; U0003; G0463; C9803; 87635; 99211

== ENCOUNTER 2020-09-19 13:23 | Emergency (ER) | payer MEDICARE, BC ==
[2020-09-19] MEDS ORDERED: METHYLPREDNISOLONE INJ 125 MG/2 ML SDV IV ONE (14:32)
--- NOTE | 2020-09-19 14:34 | ER Document Report ---
ED Respiratory Problem - General Chief Complaint: Cough Stated Complaint: COUGH Time Seen by Provider: 09/19/20 14:03 Primary Care Provider: JUDI DOUGLAS PA-C [Primary Care Provider] - Follow up as needed Mode of Arrival: Ambulatory Information source: Patient Notes: 80-year-old female with history of Covid diagnosis on 09/11/2020 ED for evaluation of increased shortness of breath as well as bilateral upper thoracic back pain. 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 Reports that she has not had chest pain. Notes that she has had increased urinary frequency and urgency. Notes that she has not been eating and drinking much. Patient states that she feels fatigued. Patient reports that she history of pneumonia as well as bronchiectasis and bronchitis. She has been using inhalers at home. Denies any chest pain. Patient notes that her 15 days of isolation would be up on 09/21/2020. She does have a dual-chamber pacemaker in place. She is not anticoagulated at this time. She denies other complaints at this time. TRAVEL OUTSIDE OF THE [place] IN LAST 30 DAYS: No - Related Data Allergies/Adverse Reactions: Sulfa (Sulfonamide Antibiotics) Allergy (Verified 12/17/19 14:18) rash codeine [Codeine] Adverse Reaction (Verified 12/17/19 14:18) Vomiting Past Medical History - Social History Smoking Status: Unknown if Ever Smoked Family History: None, Hypertension - Past Medical History Cardiac Medical History: Reports: Hx Coronary Artery Disease, Hx Hypertension, Hx Heart Murmur Denies: Hx Heart Attack Pulmonary Medical History: Reports: Hx Bronchitis, Hx Pneumonia Denies: Hx Asthma, Hx COPD, Hx Tuberculosis Neurological Medical History: Denies: Hx Cerebrovascular Accident, Hx Seizures Endocrine Medical History: Reports: Hx Hypothyroidism Renal/ Medical History: Reports: Hx Kidney Stones. Denies: Hx Peritoneal Dialysis GI Medical History: Reports: Hx Gastroesophageal Reflux Disease, Hx Hiatal Hernia - constricted esophageal hernia, Hx Liver Failure, Hx Ulcer, Hx Colonoscopy, Hx Endoscopy Musculoskeletal Medical History: Reports Hx Arthritis - osteo Psychiatric Medical History: Reports: Hx Depression - situational Past Surgical History: Reports: Hx Cardiac Catheterization - stent, Hx Cardiac Surgery - pacemaker, Hx Cholecystectomy, Hx Hysterectomy, Hx Pacemaker - Immunizations Hx Diphtheria, Pertussis, Tetanus Vaccination: No Hx Pneumococcal Vaccination: 10/17/06 Physical Exam - Vital signs Vitals: Temp Pulse Resp BP Pulse Ox 99.5 F 83 28 H 136/67 H 94 09/19/20 13:40 09/19/20 13:40 09/19/20 13:40 09/19/20 13:40 09/19/20 13:40 Notes: PHYSICAL EXAMINATION: GENERAL: Cachectic appearing female, no respiratory distress. HEAD: Atraumatic, normocephalic. EYES: Pupils equal round and reactive to light, extraocular movements intact, sclera anicteric, conjunctiva are normal. ENT: nares patent, oropharynx clear without exudates. Moist mucous membranes. NECK: Normal range of motion, supple without lymphadenopathy LUNGS: Diminished breath sounds bilaterally. Scattered upper lobe wheezing. No rales or rhonchi. HEART: Regular rate and rhythm without murmurs ABDOMEN: Soft, tender to palpation in the suprapubic region, normoactive bowel sounds. No guarding, no rebound. No masses appreciated. EXTREMITIES: Normal range of motion, no pitting or edema. No cyanosis. NEUROLOGICAL: No focal neurological deficits. Moves all extremities spontaneously and on command. PSYCH: Normal mood, normal affect. SKIN: Warm, Dry, normal turgor, no rashes or lesions noted. Course - Re-evaluation Re-evalutation: 09/19/20 19:46 80-year-old female presents to ED for evaluation of cough with positive Covid test. Patient reports that she has been on quarantine since 09/11/2020. Notes that she has been using home oxygen per her COPD requirement. Denies current fever or chills. She was hypertensive as well as tachypneic upon arrival. Did not require supplemental oxygen. She was evaluated with a chest x-ray which shows baseline cardiomegaly without evidence of overt failure or pneumonia. No WBC elevations or electrolyte abnormalities are noted. Urinalysis is positive for blood and leukocyte esterase. Patient advised of these findings. Patient was given DuoNeb treatments and Solu-Medrol with improvement. Patient was advised that I would also start her on a course of doxycycline. I did call and speak with patient's daughter while in the room and myself, patient, and Laney had a prolonged discussion about admission versus management at home. We have all agreed that patient would fare better at home at this time as she has low risk for decompensation. Patient's vital signs have improved and she is afebrile throughout her course in the department. Patient will be given new scripts of albuterol medications as well as Pyridium and doxycycline. They are highly advised to have her return to the ED if she develops any new or worsening symptoms. She is agreeable with this plan of management. 09/19/20 19:52 - Vital Signs Vital signs: Temp Pulse Resp BP Pulse Ox 98.0 F 86 21 H 124/68 96 09/19/20 17:29 09/19/20 17:29 09/19/20 17:29 09/19/20 17:29 09/19/20 17:29 - Laboratory Result Diagrams: 09/19/20 16:02 09/19/20 16:02 Laboratory results interpreted by me: 09/19/20 09/19/20 09/19/20 16:02 16:02 16:02 Plt Count 149 L [place] % (Auto) 13.5 H Carbon Dioxide 32 H Glucose 64 L NT-Pro-B Natriuret Pep 696 H Urine Blood Ur Leukocyte Esterase 09/19/20 16:57 Plt Count [place] % (Auto) Carbon Dioxide Glucose NT-Pro-B Natriuret Pep Urine Blood SMALL H Ur Leukocyte Esterase SMALL H - Diagnostic Test Radiology reviewed: Image reviewed Radiology results interpreted by me: 09/19/20 19:42 Imaging was reviewed by myself without evidence of infiltrates noted. Patient does have cardiomegaly noted. - EKG Interpretation by Me Additional EKG results interpreted by me: 09/19/20 19:44 Rate of 84 with AV dual paced rhythm. MD 176 QRS 114 QT 448 QTC 530 P axis 67 QRS 264 T96 Unchanged from prior on 12/17/2019 Discharge - Discharge Clinical Impression: COVID-19, Dyspnea UTI (urinary tract infection) Qualifiers: Urinary tract infection type: acute cystitis Hematuria presence: with hematuria Qualified Code(s): N30.01 - Acute cystitis with hematuria Condition: Stable Disposition: HOME, SELF-CARE Instructions: COVID-19 Guidance for Persons Under Investigation, Urinary Tract Infection ([facility]) Additional Instructions: Follow-up with primary care provider in the next 2 to 3 days. Return for any new or worsening symptoms. Increase fluid consumption and finish entire course of antibiotics. Prescriptions: Doxycycline Monohydrate 100 mg PO BID 10 Days #20 tablet Phenazopyridine HCl [Pyridium 200 mg Tablet] 200 mg PO TID #15 tablet Albuterol Sulfate [Ventolin 0.083% Neb 2.5 mg/3 mL Ampul] 1 vial NEB Q4 #30 vial Referrals: JUDI DOUGLAS PA-C [Primary Care Provider] - Follow up as needed
--- NOTE | 2020-09-19 15:03 | RADIOLOGY REPORT (SQ) ---
EXAM DESCRIPTION: CHEST SINGLE VIEW IMAGES COMPLETED DATE/TIME: 09/19/2020 2:47 pm REASON FOR STUDY: pneumonia COMPARISON: PA and lateral views of the chest from 04/10/2020. EXAM PARAMETERS: NUMBER OF VIEWS: One view. TECHNIQUE: An AP view of the chest was obtained. RADIATION DOSE: NA LIMITATIONS: None. FINDINGS: LUNGS AND PLEURA: Chronic thickening of the horizontal fissure. There is no acute consoli dation, pleural effusion or pneumothorax. MEDIASTINUM AND HILAR STRUCTURES: No mediastinal or hilar contour abnormality. HEART AND VASCULAR STRUCTURES: The cardiac silhouette is enlarged. BONES: No acute findings. HARDWARE: Intact left subclavian vein approach ICD. OTHER: No other finding. IMPRESSION: Cardiomegaly without a superimposed acute cardiopulmonary process. TECHNICAL DOCUMENTATION: JOB ID: [id number] 2010 [employer]- All Rights Reserved Reading location - IP/workstation name: [email or web address]
[2020-09-19] MEDS: ALBUTEROL SULFATE 0.083% NEB 2.5 MG/3 ML AMPUL NEB SCH ×2 (16:04→17:19)
[2020-09-19 16:57] LABS: ABSOLUTE LYMPHOCYTES (AUTO) 1.5 10^3/uL (0.5-4.7); ABSOLUTE MONOCYTES (AUTO) 0.8 10^3/uL (0.1-1.4); ABSOLUTE NEUT (AUTO) 3.8 10^3/uL (1.7-8.2); BASOPHILS % (AUTO) 0.4 % (0-2); EOSINOPHILS % (AUTO) 0.7 % (0-6); HEMATOCRIT 40.3 % (36.0-47.0); HEMOGLOBIN 13.3 g/dL (12.0-15.5); LYMPHOCYTES % (AUTO) 23.7 % (13-45); MEAN CORPUSCULAR HEMOGLOBIN 30.9 pg (27.0-33.4); MEAN CORPUSCULAR HGB CONC 33.1 g/dL (32.0-36.0); MEAN CORPUSCULAR VOLUME 93 fl (80-97); MONOCYTES % (AUTO) 13.5 % (3-13); PLATELET COUNT 149 10^3/uL (150-450); RED BLOOD COUNT 4.32 10^6/uL (3.72-5.28); RED CELL DISTRIBUTION WIDTH 13.9 % (11.5-14.0); SEGMENTED NEUTROPHILS % (AUTO) 61.7 % (42-78); TOTAL CELLS COUNTED % (AUTO) 100 %; WHITE BLOOD COUNT 6.1 10^3/uL (4.0-10.5)
--- NOTE | 2020-09-19 17:04 | EKG REPORT ---
SEVERITY:- ABNORMAL ECG - A-V DUAL-PACED RHYTHM : Confirmed by: Sterling Hawkins MD 19-Sep-2020 17:02:43
[2020-09-19 17:09] LABS: INTERNATIONAL RATION (INR) 1.11; PROTHROMBIN TIME 14.5 SEC (11.4-15.4)
[2020-09-19 17:10] LABS: PARTIAL THROMBOPLASTIN TIME 33.9 SEC (23.5-35.8)
[2020-09-19 17:15] LABS: ALBUMIN 3.7 g/dL (3.5-5.0); ALKALINE PHOSPHATASE 76 U/L (38-126); ANION GAP 7 (5-19); ASPARTATE AMINO TRANSFERASE 35 U/L (14-36); BILIRUBIN,DIRECT 0.1 mg/dL (0.0-0.4); BILIRUBIN,TOTAL 0.7 mg/dL (0.2-1.3); BLOOD UREA NITROGEN 9 mg/dL (7-20); CALCIUM 8.6 mg/dL (8.4-10.2); CARBON DIOXIDE 32 mmol/L (22-30); CHLORIDE 103 mmol/L (98-107); POTASSIUM 4.1 mmol/L (3.6-5.0); TOTAL PROTEIN 6.9 g/dL (6.3-8.2)
[2020-09-19 17:20] LABS: GLUCOSE 64 mg/dL (75-110)
[2020-09-19 17:27] LABS: NT PRO BNP 696 pg/mL (<450)
[2020-09-19 17:28] LABS: TROPONIN I < 0.012 ng/mL
[2020-09-19 18:27] LABS: APPEARANCE,URINE SLIGHTLY-CLOUDY; BILIRUBIN,URINE NEGATIVE (NEGATIVE); COLOR,URINE YELLOW; GLUCOSE, URINE NEGATIVE (NEGATIVE); KETONES,URINE NEGATIVE (NEGATIVE); LEUKOCYTE ESTERASE,URINE SMALL (NEGATIVE); NITRITE,URINE NEGATIVE (NEGATIVE); PROTEIN,URINE NEGATIVE (NEGATIVE); URINE SPECIFIC GRAVITY 1.011; UROBILINOGEN,URINE NEGATIVE mg/dL (<2.0)
[2020-09-19] MEDS ORDERED: DOXYCYCLINE HYCLATE 100 MG TABLET PO ONE (19:04)
[2020-09-19 19:45] VITALS: BP 130/80
== END 2020-09-19 19:45 | disposition home or self-care (01) ==
LOC: ER 13:23
DX: U07.1 COVID-19 (principal); N30.01 Acute cystitis with hematuria; R06.02 Shortness of breath; M54.9 Dorsalgia, unspecified; R05 Cough; I25.10 Atherosclerotic heart disease of native coronary artery without angina pectoris; I11.9 Hypertensive heart disease without heart failure; J44.9 Chronic obstructive pulmonary disease, unspecified; Z99.81 Dependence on supplemental oxygen; Z87.01 Personal history of pneumonia (recurrent); Z95.0 Presence of cardiac pacemaker; Z88.2 Allergy status to sulfonamides
CPT/HCPCS: 93005; 94640; 99285; 96374; 36415; 87040; 87086; 85025; 85610; 85730; 80053; 81001; 84484; 83880; 71045; 93010; A9270 ×2; J2930; J7613

== ENCOUNTER → 2020-10-22 | Outpatient (CLI) | payer MEDICARE, BC ==
--- NOTE | 2020-10-22 11:59 | WOMENS IMAGING REPORT ---
EXAM DESCRIPTION: 3D DX MAMMO BILAT; U/S BREAST UNILAT LIMITED IMAGES COMPLETED DATE/TIME: 10/22/2020 11:03 am; 10/22/2020 11:28 am REASON FOR STUDY: N63.0; RIGHT BREAST N63.0 N63.0 UNSPECIFIED LUMP IN UNSPECIFIED BREAST COMPARISON: 05/22/2018, 03/31/2015, 05/21/2013, 05/10/2012 EXAM PARAMETERS: Standard craniocaudal and mediolateral oblique views of each breast recorded using digital acquisition and breast tomosynthesis. Subsequently, targeted sonographic evaluation was performed of the patient-identified palpable abnorm ality. Read with the assistance of CAD: .[employer] Version 9.2 LIMITATIONS: None. FINDINGS: RIGHT BREAST MASSES: No suspicious masses. CALCIFICATIONS: No new or suspicious calcifications. ARCHITECTURAL DISTORTION: None. ASYMMETRY: None noted. OTHER: Targeted sonographic evaluation of the patient's palpable abnormality reveals a 7 x 6 x 6 mm a nd a 10 x 7 x 10 mm normal-morphology lymph node. LEFT BREAST MASSES: No suspicious masses. CALCIFICATIONS: No new or suspicious calcifications. ARCHITECTURAL DISTORTION: None. ASYMMETRY: None noted. OTHER: No other significant finding. IMPRESSION: No evidence of malignancy on today's examination. Patient's palpable abnormality correl ates to benign-morphology axillary lymph nodes. BREAST DENSITY: c. The breasts are heterogeneously dense, which may obscure small masses. BIRAD: ASSESSMENT: 2 Benign findings. RECOMMENDATION: RECOMMENDED FOLLOW UP: Birads 1 or 2: The patient should resume routine screening . SPECIFIC INTERVENTION/IMAGING/CONSULTATION RECOMMENDED:No additional intervention/ imaging/consultati on needed at this time. COMMUNICATION:The imaging findings were not discussed with the patient. Her referring provider has be en notified of the findings. COMMENT: The patient has been notified of the results by letter per MQSA requirements. Additional no tification policies are in place for contacting patient with suspicious or incomplete findings. Quality ID #225: The [employer] recommends an annual screening mammogram for women aged 40 years or over. This facility utilizes a reminder system to ensure that all patients receive reminder letters, and/or direct phone calls for appointments. This includes reminders for routine scr eening mammograms, diagnostic mammograms, or other Breast Imaging Interventions when appropriate. Th is patient will be placed in the appropriate reminder system. TECHNICAL DOCUMENTATION: FINDING NUMBER: (1) ASSESSMENT: (1) JOB ID: [id number] 2010 [email or web address]- All Rights Reserved Reading location - IP/workstation name: [email or web address]
--- NOTE | 2020-10-22 11:59 | WOMENS IMAGING REPORT ---
EXAM DESCRIPTION: 3D DX MAMMO BILAT; U/S BREAST UNILAT LIMITED IMAGES COMPLETED DATE/TIME: 10/22/2020 11:03 am; 10/22/2020 11:28 am REASON FOR STUDY: N63.0; RIGHT BREAST N63.0 N63.0 UNSPECIFIED LUMP IN UNSPECIFIED BREAST COMPARISON: 05/22/2018, 03/31/2015, 05/21/2013, 05/10/2012 EXAM PARAMETERS: Standard craniocaudal and mediolateral oblique views of each breast recorded using digital acquisition and breast tomosynthesis. Subsequently, targeted sonographic evaluation was performed of the patient-identified palpable abnorm ality. Read with the assistance of CAD: .[employer] Version 9.2 LIMITATIONS: None. FINDINGS: RIGHT BREAST MASSES: No suspicious masses. CALCIFICATIONS: No new or suspicious calcifications. ARCHITECTURAL DISTORTION: None. ASYMMETRY: None noted. OTHER: Targeted sonographic evaluation of the patient's palpable abnormality reveals a 7 x 6 x 6 mm a nd a 10 x 7 x 10 mm normal-morphology lymph node. LEFT BREAST MASSES: No suspicious masses. CALCIFICATIONS: No new or suspicious calcifications. ARCHITECTURAL DISTORTION: None. ASYMMETRY: None noted. OTHER: No other significant finding. IMPRESSION: No evidence of malignancy on today's examination. Patient's palpable abnormality correl ates to benign-morphology axillary lymph nodes. BREAST DENSITY: c. The breasts are heterogeneously dense, which may obscure small masses. BIRAD: ASSESSMENT: 2 Benign findings. RECOMMENDATION: RECOMMENDED FOLLOW UP: Birads 1 or 2: The patient should resume routine screening . SPECIFIC INTERVENTION/IMAGING/CONSULTATION RECOMMENDED:No additional intervention/ imaging/consultati on needed at this time. COMMUNICATION:The imaging findings were not discussed with the patient. Her referring provider has be en notified of the findings. COMMENT: The patient has been notified of the results by letter per MQSA requirements. Additional no tification policies are in place for contacting patient with suspicious or incomplete findings. Quality ID #225: The [employer] recommends an annual screening mammogram for women aged 40 years or over. This facility utilizes a reminder system to ensure that all patients receive reminder letters, and/or direct phone calls for appointments. This includes reminders for routine scr eening mammograms, diagnostic mammograms, or other Breast Imaging Interventions when appropriate. Th is patient will be placed in the appropriate reminder system. TECHNICAL DOCUMENTATION: FINDING NUMBER: (1) ASSESSMENT: (1) JOB ID: [id number] 2010 [employer]- All Rights Reserved Reading location - IP/workstation name: [email or web address]
== END ==
LOC: WI 10:36
PROVIDERS: ATTEND Physician Assistant
DX: N64.89 Other specified disorders of breast (principal)
CPT/HCPCS: 76642; 77066; G0279; 77062